=== PATIENT | female | born 1965 | race Caucasian/White ===

== ENCOUNTER 2018-11-22 11:21 | Emergency (ER) | payer OTHER ==
[2018-11-22] MEDS ORDERED: DUONEB 0.5-3 MG/3 ml Neb IH ONE (11:49)
[2018-11-22] MEDS: DUONEB 0.5-3 MG/3 ml Neb IH ONE (11:51)
[2018-11-22] MEDS ORDERED: Sodium Chloride 0.9% 1000 ML 1,000 ML ONE (11:55)
[2018-11-22] MEDS ORDERED: ROCEPHIN 1 Gm-D5w 50 ml Bag** 1 G/50 ML IVPB IV ONE (11:55)
[2018-11-22] MEDS ORDERED: Zithromax 500 MG/ 250 ML NaCl Premix 500 MG/250 ML IVPB IV ONE (11:55)
[2018-11-22] MEDS: Rocephin 1000 MG INJ IM ONE (12:03)
[2018-11-22] MEDS: Sodium Chloride 0.9% 1000 ML 1,000 ML IV STA (12:04)
[2018-11-22] MEDS: Zithromax 500 MG/ 250 ML NaCl Premix 500 MG/250 ML IVPB IV ONE (12:04)
[2018-11-22 12:15] LABS: BASOPHIL % 0.1 % (0.0-0.4); Basophil (Absolute #) 0.02 (0-0.4); Eosinophil % 0.5 % (0.00-5.0); Eosinophil (Absolute #) 0.08 (0-0.5); Granulocytes % 81.9 % (36.0-66.0); Hemoglobin 13.9 gm/dl (12.0-16.0); Lymphocyte (Absolute #) 1.31 (1.0-4.6); Lymphocytes % 8.9 % (24.0-44.0); Mean Cell Volume 96.2 fl (78-100); Mean Corpuscular Hemoglobin 32.6 pg (26-32); Mean Corpuscular Hgb Concent. 33.9 g/dl (32-36); Mean Platelet Volume 9.3 fl (6-9.5); Monocyte (Absolute #) 1.26 (0.0-1.3); Monocytes % 8.6 % (0.0-12.0); Platelet Count 277 K/mm3 (150-450); Red Blood Count 4.26 M/mm3 (4.1-5.4); Red Cell Distribution Width 13.2 % (11.5-14.0); White Blood Count 14.7 K/mm3 (4.0-10.5)
[2018-11-22 12:26] LABS: ALBUMIN 4.4 g/dL (3.5-5.0); ALKALINE PHOSPHATASE 77 U/L (38-126); ANION GAP 18.6 MEQ/L (5-15); BLOOD UREA NITROGEN 8 mg/dL (7-17); CHLORIDE 97 mmol/L (98-107); Calcium 9.5 mg/dL (8.4-10.2); Carbon Dioxide 24 mmol/L (22-30); Creatinine 1 0.47 mg/dL (0.52-1.04); Glucose 116 mg/dL (74-106); Potassium 3.2 mmol/L (3.5-5.1); SGOT/AST 20 U/L (14-36); SGPT/ALT 12 U/L (0-35); SODIUM 137 mmol/L (137-145); Total Protein 8.1 g/dL (6.3-8.2)
[2018-11-22 12:29] LABS: Appearance SLIGHTLY CLOUDY (CLEAR); Bacteria RARE /HPF (NEGATIVE); Bilirubin NEGATIVE (NEGATIVE); Blood NEGATIVE Ery/ul (0-5); Epithelial Cells RARE /HPF (FEW); Glucose NEGATIVE (NEGATIVE); Ketones NEGATIVE (NEGATIVE); Leukocyte Esterase NEGATIVE (NEGATIVE); Mucus SLIGHT /HPF (NEGATIVE); Nitrite NEGATIVE (NEGATIVE); Protein,Urine Dip 30 (Negative); Specific Gravity 1.025 (1.005-1.025); Urobilinogen 4 mg/dL (0-1)
[2018-11-22 12:45] LABS: Group A Strep NEGATIVE (NEGATIVE); INFLUENZA A NEGATIVE (NEGATIVE); INFLUENZA B NEGATIVE (NEGATIVE); RESPIRATORY SYNCTIAL VIRUS NEGATIVE (Negative)
[2018-11-22 15:01] VITALS: BP 104/67; PULSE 101
[2018-11-22 15:06] VITALS: O2SAT 98
--- NOTE | 2018-11-22 15:06 | ERPHSYRPT ---
- History of Present Illness Source: patient Exam Limitations: no limitations Patient Subjective Stated Complaint: fever since yesterday, hard to breath, weak Triage Nursing Assessment: Pt used a wheelchair to get into the ER, states her fever this morning was 101.8 and T now is 98.2, tachycardic, rates pain 6/10, pulses normal, color normal and dry, doesn't appear to be in any distress Physician History: Pt is a 53 y/o female with a h/o COPD, that developed fever for the last three days. Pt states, has SOB and wheezes with pain with deep breathing. Pt states , did not improve, and secondary to it, presented to the ED. Pt is using Breo, and Duo nebs. No Spiriva or Incruse. She states, smoking about 1/3 pack of cigarettes daily. No use of O2 at home. Timing/Duration: day(s) Activities at Onset: none Severity of Dyspnea-Max: moderate Severity of Dyspnea-Current: mild Possible Cause: occasional episodes Modifying Factors: Improves With: albuterol nebulizer, deep breath, exertion Associated Symptoms: fever, painful breathing Allergies/Adverse Reactions: No Known Drug Allergies Allergy (Verified 11/22/18 11:47) Home Medications: Albuterol 2.5 mg/3 ml Neb [Proventil 2.5 mg/3 ml Neb] 2.5 mg [facility] [History] Albuterol Sulfate [Albuterol Sulfate Hfa] 18 gm [facility] 11/22/18 [History] Cyclobenzaprine HCl 10 mg [Cyclobenzaprine 10 MG] 10 mg PO UD PRN [History] Fluticasone/Vilanterol [Breo Ellipta 100-25 Mcg INH] 1 each [facility] 11/22/18 [ History] - Review of Systems Constitutional: Fever, Chills, Fatigue Eyes: No Symptoms Ears, Nose, & Throat: No Symptoms Respiratory: Dyspnea, Dyspnea on Exertion (LAWLER), Wheezing Cardiac: No Chest Pain, No Edema, No Syncope Abdominal/Gastrointestinal: No Abdominal Pain, No Nausea, No Vomiting, No Diarrhea Genitourinary Symptoms: No Dysuria Musculoskeletal: No Back Pain, No Neck Pain Neurological: No Dizziness, No Focal Weakness, No Sensory Changes - Past Medical History Pertinent Past Medical History: Yes Respiratory History: COPD, Emphysema Musculoskeletal History: Rheumatoid Arthritis, Other GI Medical History: Diverticulitis - Past Surgical History Past Surgical History: Yes - Social History Smoking Status: Current every day smoker How long have you smoked: 40 years Exposure to second hand smoke: Yes Drug Use: none Patient Lives Alone: Yes - Nursing Vital Signs Nursing Vital Signs: Initial Vital Signs Temperature 98.2 F 11/22/18 11:29 Pulse Rate 108 H 11/22/18 11:29 Blood Pressure 109/70 11/22/18 11:29 O2 Sat by Pulse Oximetry 99 11/22/18 11:29 Pain Scale Pain Intensity 4 - Physical Exam General Appearance: no apparent distress, alert Eye Exam: PERRL/EOMI Ears, Nose, Throat Exam: hearing grossly normal Neck Exam: normal inspection, supple Respiratory Exam: prolonged expirations, wheezing Cardiovascular/Chest Exam: normal heart sounds, regular rate/rhythm Abdominal/Gastrointestinal Exam: soft, No tenderness, No distention, No mass Extremity Exam: non-tender, normal range of motion, normal inspection, no calf tenderness, no pedal edema Neurologic Exam: alert, oriented x 3, cooperative, barge loader II-XII nml as tested, sensation nml, No motor deficits SpO2 Interpretation: normal SpO2: 98 - Course EKG Interpreted by Me: RATE (108), Sinus Rhythm, NORMAL QRS, NORMAL ST-T - Radiology Exams Chest X-ray Interpretation: Interpreted by me (RUL and RLL infiltrates, density of NIA ) - CT Exams Chest CT Interpretation: Tele-radiologist Report (Abnormal b/l upper lobes hypersensetivity pneumonitis, pneumoconiosis, granulomatous dsx. Pulmonary emphysema.) Ordered Tests: Active Orders 24 hr Category Date Time Status IV Insertion STAT Care 11/22/18 11:36 Active CHEST 2 VIEWS (PA AND LAT) Stat Exams 11/22/18 12:17 Taken CHEST WITHOUT CONTRAST [CT] Stat Exams 11/22/18 13:06 Taken BLOOD CULTURE Stat Lab 11/22/18 12:01 Received CBC W DIFF Stat Lab 11/22/18 12:01 Completed CMP Stat Lab 11/22/18 12:01 Completed Lactic Acid Stat Lab 11/22/18 11:44 Completed UA W/RFX UR CULTURE Stat Lab 11/22/18 11:52 Completed Peak Expiratory Flow Rate ONCE RT 11/22/18 11:55 Active Respiratory Therapy Assessment DAILY RT 11/22/18 11:55 Active Medication Summary Discontinued Medications Generic Name Dose Route Start Last Admin Trade Name Rojas PRN Reason Stop Dose Admin Albuterol/Ipratropium 3 ml 11/22/18 11:44 11/22/18 11:51 Duoneb 0.5-3 Mg/3 Ml Neb IH 11/22/18 11:45 3 ml STAT ONE Administration Albuterol/Ipratropium Confirm 11/22/18 11:49 Duoneb 0.5-3 Mg/3 Ml Neb Administered 11/22/18 11:50 Dose 3 ml IH .STK-MED ONE Ceftriaxone Sodium 1,000 mg 11/22/18 11:36 11/22/18 12:03 Rocephin 1000 Mg Inj IM 11/22/18 11:37 1,000 mg STAT ONE Administration Azithromycin 500 mg in 250 mls @ 250 mls/hr 11/22/18 11:38 11/22/18 12:04 Zithromax 500 Mg/ 250 Ml Nacl Premix IV 11/22/18 12:37 250 mls/hr STAT ONE Administration Sodium Chloride 1,000 mls @ 999 mls/hr 11/22/18 11:36 11/22/18 13:59 Sodium Chloride 0.9% 1000 Ml IV 11/22/18 12:36 Infused .Q1H1M STA Infusion Azithromycin Confirm 11/22/18 11:55 Zithromax 500 Mg/ 250 Ml Nacl Premix Administered 11/22/18 11:56 Dose 500 mg in 250 mls @ ud IV .STK-MED ONE Sodium Chloride Confirm 11/22/18 11:55 Sodium Chloride 0.9% 1000 Ml Administered 11/22/18 11:56 Dose 1,000 mls @ ud .ROUTE .STK-MED ONE Ceftriaxone Sodium/Dextrose Confirm 11/22/18 11:55 Rocephin 1 Gm-D5w 50 Ml Bag Administered 11/22/18 11:56 Dose 1 g in 50 mls @ ud IV .STK-MED ONE Lab/Rad Data: Laboratory Result Diagrams 11/22/18 12:01 11/22/18 12:01 Laboratory Results 11/22/18 11/22/18 11/22/18 Range/Units 12:01 12:01 12:01 WBC 14.7 H (4.0-10.5) K/mm3 RBC 4.26 (4.1-5.4) M/mm3 Hgb 13.9 (12.0-16.0) gm/dl Hct 41.0 (35-47) % MCV 96.2 (78-100) fl MCH 32.6 H (26-32) pg MCHC 33.9 (32-36) g/dl RDW 13.2 (11.5-14.0) % Plt Count 277 (150-450) K/mm3 MPV 9.3 (6-9.5) fl Gran % 81.9 H (36.0-66.0) % Eos # (Auto) 0.08 (0-0.5) Absolute Lymphs (auto) 1.31 (1.0-4.6) Absolute Monos (auto) 1.26 (0.0-1.3) Lymphocytes % 8.9 L (24.0-44.0) % Monocytes % 8.6 (0.0-12.0) % Eosinophils % 0.5 (0.00-5.0) % Basophils % 0.1 (0.0-0.4) % Absolute Granulocytes 12.00 H (1.4-6.9) Basophils # 0.02 (0-0.4) Sodium 137 (137-145) mmol/L Potassium 3.2 L (3.5-5.1) mmol/L Chloride 97 L (98-107) mmol/L Carbon Dioxide 24 (22-30) mmol/L Anion Gap 18.6 H (5-15) MEQ/L BUN 8 (7-17) mg/dL Creatinine 0.47 L (0.52-1.04) mg/dL Estimated GFR > 60.0 ML/MIN Glucose 116 H (74-106) mg/dL Lactic Acid (0.4-2.0) Calcium 9.5 (8.4-10.2) mg/dL Total Bilirubin 0.70 (0.2-1.3) mg/dL AST 20 (14-36) U/L ALT 12 (0-35) U/L Alkaline Phosphatase 77 (38-126) U/L Serum Total Protein 8.1 (6.3-8.2) g/dL Albumin 4.4 (3.5-5.0) g/dL Urine Color (YELLOW) Urine Appearance (CLEAR) Urine pH (5-6) Ur Specific [place] (1.005-1.025) Urine Protein (Negative) Urine Ketones (NEGATIVE) Urine Blood (0-5) Jabier/ul Urine Nitrite (NEGATIVE) Urine Bilirubin (NEGATIVE) Urine Urobilinogen (0-1) mg/dL Ur Leukocyte Esterase (NEGATIVE) Urine WBC (Auto) (0-5) /HPF Urine RBC (Auto) (0-2) /HPF U Hyaline Cast (Auto) (0-2) /LPF U Epithel Cells (Auto) (FEW) /HPF Urine Bacteria (Auto) (NEGATIVE) /HPF Urine Mucus (Auto) (NEGATIVE) /HPF Urine Culture Reflexed (NO) Urine Glucose (NEGATIVE) mg/dL Influenza Type A Ag NEGATIVE (NEGATIVE) Influenza Type B Ag NEGATIVE (NEGATIVE) RSV (PCR) NEGATIVE (Negative) Group A Strep Antibody NEGATIVE (NEGATIVE) 11/22/18 11/22/18 Range/Units 11:52 11:44 WBC (4.0-10.5) K/mm3 RBC (4.1-5.4) M/mm3 Hgb (12.0-16.0) gm/dl Hct (35-47) % MCV (78-100) fl MCH (26-32) pg MCHC (32-36) g/dl RDW (11.5-14.0) % Plt Count (150-450) K/mm3 MPV (6-9.5) fl Gran % (36.0-66.0) % Eos # (Auto) (0-0.5) Absolute Lymphs (auto) (1.0-4.6) Absolute Monos (auto) (0.0-1.3) Lymphocytes % (24.0-44.0) % Monocytes % (0.0-12.0) % Eosinophils % (0.00-5.0) % Basophils % (0.0-0.4) % Absolute Granulocytes (1.4-6.9) Basophils # (0-0.4) Sodium (137-145) mmol/L Potassium (3.5-5.1) mmol/L Chloride (98-107) mmol/L Carbon Dioxide (22-30) mmol/L Anion Gap (5-15) MEQ/L BUN (7-17) mg/dL Creatinine (0.52-1.04) mg/dL Estimated GFR ML/MIN Glucose (74-106) mg/dL Lactic Acid 1.4 (0.4-2.0) Calcium (8.4-10.2) mg/dL Total Bilirubin (0.2-1.3) mg/dL AST (14-36) U/L ALT (0-35) U/L Alkaline Phosphatase (38-126) U/L Serum Total Protein (6.3-8.2) g/dL Albumin (3.5-5.0) g/dL Urine Color YELLOW (YELLOW) Urine Appearance SLIGHTLY CLOUDY (CLEAR) Urine pH 5.0 (5-6) Ur Specific [place] 1.025 (1.005-1.025) Urine Protein 30 (Negative) Urine Ketones NEGATIVE (NEGATIVE) Urine Blood NEGATIVE (0-5) Jabier/ul Urine Nitrite NEGATIVE (NEGATIVE) Urine Bilirubin NEGATIVE (NEGATIVE) Urine Urobilinogen 4 (0-1) mg/dL Ur Leukocyte Esterase NEGATIVE (NEGATIVE) Urine WBC (Auto) 3-5 (0-5) /HPF Urine RBC (Auto) NONE (0-2) /HPF U Hyaline Cast (Auto) 6-10 (0-2) /LPF U Epithel Cells (Auto) RARE (FEW) /HPF Urine Bacteria (Auto) RARE (NEGATIVE) /HPF Urine Mucus (Auto) SLIGHT (NEGATIVE) /HPF Urine Culture Reflexed NO (NO) Urine Glucose NEGATIVE (NEGATIVE) mg/dL Influenza Type A Ag (NEGATIVE) Influenza Type B Ag (NEGATIVE) RSV (PCR) (Negative) Group A Strep Antibody (NEGATIVE) - Progress Progress: improved Air Movement: good Progress Note: 11/22/18 15:10 Pt got Ceftriaxone IV. Azithromax stopped mid infusion, secondary to erythema that developed during infusion. Duo neb therapy was given. CXR showed multiple infiltrates and CT showed b/l disease, that can be pneumonitis, or granulomatous dsx. Pt will be d/c to home on Levaquin and Medrol dose pack. She should f/u with Pulmonology to work her up, and make sure no escalation of her chronic dsx. Blood Culture(s) Obtained: Yes Antibiotics given: Yes Will see patient in: office Counseled pt/family regarding: need for follow-up - Departure Departure Disposition: Home Clinical Impression: Pneumonitis Condition: Stable Critical Care Time: No Referrals: SANDOR KRAUSE, [employer]ET[employer] DIRECTOR [Primary Care Provider] - Additional Instructions: Take ABX and steroids as ordered. Take Breo and nebs as schedulled. F/U with Pulmonology and PCP. Prescriptions: Levofloxacin [Levaquin] 750 mg PO DAILY 7 Days #7 tablet Methylprednisolone Packet [Medrol Dosepack] 4 mg PO UD 6 Days #1 packet
--- NOTE | 2018-11-22 20:15 | XRAY ---
Indication: Short of breath. COPD. Multiple infiltrates on same-day chest radiograph. Multiple contiguous axial images obtained through the chest without contrast as ordered. Comparison: None Lungs demonstrates mild/moderate pulmonary emphysema with mild right middle lobe and bibasilar fibrosis/scarring. There are patchy interstitial alveolar opacities in both upper lobes. No suspicious pulmonary mass or effusion. Heart is not enlarged. Aorta is normal in course and caliber with minimal calcifications. 11 x 16 mm precarinal lymph node possibly reactive. Bony thorax intact. Limited upper abdomen including adrenal glands are unremarkable. Impression: 1. Bilateral upper lobe interstitial alveolar opacities corresponding to same day chest radiograph finding. 2. Prominent mediastinal lymph node presumed reactive. 3. Pulmonary emphysema. Comment: Preliminary interpretation was made by [facility]. No critical discrepancy. CTDI 9.38
--- NOTE | 2018-11-22 20:16 | XRAY ---
Indication: Short of breath. COPD. Comparison: None PA/lateral chest hyperinflated with patchy biapical airspace disease without consolidation/large effusion. Remaining heart and bony thorax unremarkable.
== END 2018-11-22 15:20 | disposition home or self-care (01) ==
LOC: ED 11:21
DX: J18.9 Pneumonia, unspecified organism (principal)
CPT/HCPCS: 36000; 36415; 71046; 71250; 80053; 81001; 83605; 85025; 87040; 87631; 87651; 94150; 94640; 96360; 96365; 96368; 99284; J0456; J0696; A9270-GY

== ENCOUNTER 2021-07-25 15:42 | Emergency (ER) | payer MEDICARE ==
[2021-07-25 15:51] VITALS: BP 109/80
[2021-07-25] MEDS ORDERED: DUONEB 0.5-3 MG/3 ml Neb IH ONE ×2 (16:23→16:47)
[2021-07-25] MEDS ORDERED: BABY ASPIRIN 81 MG CHEW PO ONE (16:25)
--- NOTE | 2021-07-25 16:30 | ERPHSYRPT ---
- History of Present Illness Time Seen by Provider: 07/25/21 15:44 Historian: patient Exam Limitations: no limitations Patient Subjective Stated Complaint: pt to er c/o left sided chest pain onset this am. PT reports radiation down left arm and numbness to left digits. Nausea present otherwise no other sx. pain is contiuous throbbing pain Triage Nursing Assessment: TP arrives to er pale/w/d resp easy non labored pt a@ox3 BBS CTA, heart tones normal Physician History: 55-year-old female with history of anxiety, tobacco abuse, cyst chronic respiratory failure from COPD on 5 L oxygen presented in the ER with no nonbl oody, from primary care office with chief complaint of chest pain since morning. Patient reports sharp substernal/left-sided chest pain with radiation to the left arm, aggravated with movements of left arm and no significant relieving factors. Reports associated mild increased shortness of breath and palpitations. Denies fever or chills. Patient reports she has history of anxiety and going through a lot of stress lately. Denies any history of CAD or cardiac work-up in the past. Timing/Duration: today, constant, sudden, worse Activities at Onset: emotional stress, sleep Quality: sharpness Location: substernal Chest Pain Radiation: arm Severity of Pain-Max: moderate Severity of Pain-Current: moderate Modifying Factors: Worsens With: movement Associated Symptoms: palpitations, shortness of breath Prior Chest Pain/Cardiac Workup: no prior chest pain, no prior cardiac workup Nitro Today/Relief: no nitro taken today Aspirin Treatment Today: no aspirin today Allergies/Adverse Reactions: No Known Drug Allergies Allergy (Verified 11/22/18 11:47) Home Medications: Albuterol 2.5 mg/3 ml Neb [Proventil 2.5 mg/3 ml Neb] 2.5 mg IH QID 11/22/18 [History] Albuterol Sulfate [Albuterol Sulfate Hfa] 18 gm IH UD PRN 11/22/18 [History] Fluticasone/Umeclidin/Vilanter [Trelegy Ellipta 100-62.5-25] 1 unit IH DAILY 07/25/21 [History] Lactulose [Lactulose 20 gm/30Ml Ud Cup] 20 gm PO TID 07/25/21 [History] predniSONE [Prednisone] 10 mg PO DAILY 07/25/21 [History] Travel Risk - International Travel Have you traveled outside of the country in past 3 weeks: No - Coronavirus Screening Are you exhibiting any of the following symptoms?: No Close contact with a COVID-19 positive Pt in past 14-21 Days: No - Vaccine Status Have you recieved a Covid-19 vaccination: No - Review of Systems Constitutional: No Symptoms Eyes: No Symptoms Ears, Nose, & Throat: No Symptoms Respiratory: Cough, Dyspnea, Dyspnea on Exertion (LAWLER) Cardiac: Chest Pain, Palpitations Abdominal/Gastrointestinal: No Symptoms Genitourinary Symptoms: No Symptoms Musculoskeletal: No Symptoms Skin: No Symptoms Neurological: No Symptoms Psychological: No Symptoms Endocrine: No Symptoms Hematologic/Lymphatic: No Symptoms Immunological/Allergic: No Symptoms - Past Medical History Pertinent Past Medical History: Yes Respiratory History: COPD, Emphysema Musculoskeletal History: Rheumatoid Arthritis, Other GI Medical History: Diverticulitis - Past Surgical History Past Surgical History: Yes - Social History Smoking Status: Current every day smoker How long have you smoked: 40 years Exposure to second hand smoke: Yes Drug Use: none Patient Lives Alone: Yes - Nursing Vital Signs Nursing Vital Signs: Initial Vital Signs Temperature 98.7 F 07/25/21 15:42 Pulse Rate 110 H 07/25/21 15:42 Respiratory Rate 20 07/25/21 15:42 Blood Pressure 109/80 07/25/21 15:42 O2 Sat by Pulse Oximetry 97 07/25/21 15:42 Pain Scale Pain Intensity 8 - Physical Exam General Appearance: no apparent distress, alert, anxiety Eye Exam: PERRL/EOMI, eyes nml inspection Ears, Nose, Throat Exam: normal ENT inspection, TMs normal, pharynx normal, moist mucous membranes Neck Exam: normal inspection, non-tender, supple, full range of motion Respiratory Exam: wheezing, No chest tenderness, No respiratory distress, No accessory muscle use Cardiovascular Exam: tachycardia Back Exam: normal inspection, normal range of motion Extremity Exam: normal inspection, normal range of motion Neurologic Exam: alert, oriented x 3, cooperative Skin Exam: normal color SpO2 Interpretation: normal SpO2: 97 O2 Delivery: Nasal Cannula - Course EKG Interpreted by Me: RATE (98), NORMAL AXIS, NORMAL INTERVALS, Non-specific ST Changes, Other (Right atrial enlargement.) Ordered Tests: Active Orders 24 hr Category Date Time Status Computer Training Specialist STAT Care 07/25/21 16:24 Active EKG-ER Only STAT Care 07/25/21 16:23 Active IV Insertion STAT Care 07/25/21 16:23 Active CHEST 1 VIEW (PORTABLE) Stat Exams 07/25/21 16:24 Completed BLOOD CULTURE Stat Lab 07/25/21 16:24 Ordered CBC W DIFF Stat Lab 07/25/21 16:23 Completed CMP Stat Lab 07/25/21 16:23 Completed D-DIMER QUANTITATIVE Stat Lab 07/25/21 16:23 Completed Lactic Acid Stat Lab 07/25/21 16:50 Completed MAGNESIUM Stat Lab 07/25/21 16:23 Completed NT PRO BNP Stat Lab 07/25/21 16:23 Completed TROPONIN Q3H Lab 07/25/21 16:30 Completed TROPONIN Q3H Lab 07/25/21 19:30 Ordered TROPONIN Q3H Lab 07/25/21 22:30 Ordered TROPONIN Q3H Lab 07/26/21 01:30 Ordered TROPONIN Q3H Lab 07/26/21 04:30 Ordered UA W/RFX UR CULTURE Stat Lab 07/25/21 17:17 Ordered Respiratory Therapy Assessment DAILY RT 07/25/21 16:55 Active Medication Summary Discontinued Medications Generic Name Dose Route Start Last Admin Trade Name Freq PRN Reason Stop Dose Admin Albuterol/Ipratropium 3 ml 07/25/21 16:23 07/25/21 16:48 Ipratropium/Albuterol Sulfate 3 Ml Ampul.Neb IH 07/25/21 16:24 3 ml STAT ONE Administration Albuterol/Ipratropium Confirm 07/25/21 16:47 Ipratropium/Albuterol Sulfate 3 Ml Ampul.Neb Administered 07/25/21 16:48 Dose 3 ml IH .STK-MED ONE Aspirin 324 mg 07/25/21 16:25 07/25/21 16:34 Aspirin 81 Mg Tab.Chew PO 07/25/21 16:26 324 mg STAT ONE Administration Aspirin Confirm 07/25/21 16:34 Aspirin 81 Mg Tab.Chew Administered 07/25/21 16:35 Dose 324 mg .ROUTE .STK-MED ONE Lab/Rad Data: Laboratory Result Diagrams 07/25/21 16:23 07/25/21 16:23 Laboratory Results 07/25/21 07/25/21 07/25/21 Range/Units 16:50 16:30 16:23 WBC (4.0-10.5) K/mm3 RBC (4.1-5.4) M/mm3 Hgb (12.0-16.0) gm/dl Hct (35-47) % MCV (78-100) fl MCH (26-32) pg MCHC (32-36) g/dl RDW (11.5-14.0) % Plt Count (150-450) K/mm3 MPV (7.5-11.0) fl Gran % (36.0-66.0) % Eos # (Auto) (0-0.5) Absolute Lymphs (auto) (1.0-4.6) Absolute Monos (auto) (0.0-1.3) Lymphocytes % (24.0-44.0) % Monocytes % (0.0-12.0) % Eosinophils % (0.00-5.0) % Basophils % (0.0-0.4) % Absolute Granulocytes (1.4-6.9) Basophils # (0-0.4) D-Dimer < 215 L (215-500) ng/mL Sodium (137-145) mmol/L Potassium (3.5-5.1) mmol/L Chloride (98-107) mmol/L Carbon Dioxide (22-30) mmol/L Anion Gap (5-15) MEQ/L BUN (7-17) mg/dL Creatinine (0.52-1.04) mg/dL Estimated GFR ML/MIN Glucose (74-106) mg/dL Lactic Acid 1.4 (0.4-2.0) Calcium (8.4-10.2) mg/dL Magnesium (1.6-2.3) mg/dL Total Bilirubin (0.2-1.3) mg/dL AST (14-36) U/L ALT (0-35) U/L Alkaline Phosphatase (38-126) U/L Troponin I < 0.012 (0.000-0.034) ng/mL NT-Pro-B Natriuret Pep (0-900) pg/mL Serum Total Protein (6.3-8.2) g/dL Albumin (3.5-5.0) g/dL 07/25/21 07/25/21 Range/Units 16:23 16:23 WBC 7.8 (4.0-10.5) K/mm3 RBC 4.35 (4.1-5.4) M/mm3 Hgb 13.9 (12.0-16.0) gm/dl Hct 43.6 (35-47) % MCV 100.2 H (78-100) fl MCH 32.0 (26-32) pg MCHC 31.9 L (32-36) g/dl RDW 13.0 (11.5-14.0) % Plt Count 245 (150-450) K/mm3 MPV 10.0 (7.5-11.0) fl Gran % 83.3 H (36.0-66.0) % Eos # (Auto) 0.01 (0-0.5) Absolute Lymphs (auto) 0.90 L (1.0-4.6) Absolute Monos (auto) 0.38 (0.0-1.3) Lymphocytes % 11.5 L (24.0-44.0) % Monocytes % 4.8 (0.0-12.0) % Eosinophils % 0.1 (0.00-5.0) % Basophils % 0.3 (0.0-0.4) % Absolute Granulocytes 6.53 (1.4-6.9) Basophils # 0.02 (0-0.4) D-Dimer (215-500) ng/mL Sodium 142 (137-145) mmol/L Potassium 3.9 (3.5-5.1) mmol/L Chloride 102 (98-107) mmol/L Carbon Dioxide 33 H (22-30) mmol/L Anion Gap 11.2 (5-15) MEQ/L BUN 5 L (7-17) mg/dL Creatinine 0.56 (0.52-1.04) mg/dL Estimated GFR > 60.0 ML/MIN Glucose 122 H (74-106) mg/dL Lactic Acid (0.4-2.0) Calcium 9.7 (8.4-10.2) mg/dL Magnesium 1.9 (1.6-2.3) mg/dL Total Bilirubin 0.80 (0.2-1.3) mg/dL AST 19 (14-36) U/L ALT 12 (0-35) U/L Alkaline Phosphatase 60 (38-126) U/L Troponin I (0.000-0.034) ng/mL NT-Pro-B Natriuret Pep 201 (0-900) pg/mL Serum Total Protein 7.0 (6.3-8.2) g/dL Albumin 4.5 (3.5-5.0) g/dL - Progress Progress: improved Air Movement: good Progress Note: 07/25/21 18:40 55-year-old is evaluated for chest pain, EKG did not show any acute ischemic changes and negative initial troponin and D-dimer. Chest x-ray negative for any acute cardiopulmonary findings. Patient has multiple risk factors for CAD, recommended observation admission for rule out ACS, does not want to stay. She is not confused or altered at all. Patient reports her pain is resolved now and does not want to stay even for second troponin. She wanted to leave AGAINST MEDICAL ADVICE and understand the risk of delaying the diagnosis, worsening of condition including IL leading to but still wants to leave. Blood Culture(s) Obtained: No Antibiotics given: No Counseled pt/family regarding: lab results, diagnosis, rad results, smoking cessation - Departure Departure Disposition: AMA Clinical Impression: Precordial chest pain Condition: Stable Critical Care Time: No Referrals: YODIT CASAS [Primary Care Provider] - Follow up/PCP as directed (1-2 days for reevaluation) MARYAN ARANA [CONSULTING PHYSICIAN] - Follow up/PCP as directed (Call for appointment for reevaluation) Instructions: Angina (DC), Chest Pain (DC) Additional Instructions: Do not smoke. Follow-up with primary care and cardiology for reevaluation. Re turn to ER for worsening chest pain or if having difficulty breathing etc.
[2021-07-25] MEDS ORDERED: BABY ASPIRIN 81 MG CHEW ONE (16:34)
[2021-07-25 16:43] LABS: Absolute Neutrophil Ct (ANC) 6.53 (1.4-6.9); Basophil (Absolute #) 0.02 (0-0.4); Eosinophil % 0.1 % (0.00-5.0); Eosinophil (Absolute #) 0.01 (0-0.5); Hematocrit 43.6 % (35-47); Hemoglobin 13.9 gm/dl (12.0-16.0); Lymphocytes % 11.5 % (24.0-44.0); Mean Cell Volume 100.2 fl (78-100); Mean Corpuscular Hgb Concent. 31.9 g/dl (32-36); Monocyte (Absolute #) 0.38 (0.0-1.3); Monocytes % 4.8 % (0.0-12.0); Neutrophil % 83.3 % (36.0-66.0); Platelet Count 245 K/mm3 (150-450); Red Blood Count 4.35 M/mm3 (4.1-5.4); White Blood Count 7.8 K/mm3 (4.0-10.5)
--- NOTE | 2021-07-25 16:43 | XRAY ---
Indication: Chest pain. Comparison: May 31, 2021. Lungs remain hyperinflated and clear. Heart not enlarged. Bony thorax intact. Findings unchanged with respect to recent CT chest with contrast exam July 09, 2021.
[2021-07-25 16:56] VITALS: PULSE 84
[2021-07-25 17:00] LABS: ALBUMIN 4.5 g/dL (3.5-5.0); ALKALINE PHOSPHATASE 60 U/L (38-126); ANION GAP 11.2 MEQ/L (5-15); BLOOD UREA NITROGEN 5 mg/dL (7-17); CHLORIDE 102 mmol/L (98-107); Calcium 9.7 mg/dL (8.4-10.2); Carbon Dioxide 33 mmol/L (22-30); Creatinine 1 0.56 mg/dL (0.52-1.04); EST GLOMERULAR FILTRATION RATE > 60.0 ML/MIN; Glucose 122 mg/dL (74-106); MAGNESIUM 1.9 mg/dL (1.6-2.3); NT PRO BNP 201 pg/mL (0-900); Potassium 3.9 mmol/L (3.5-5.1); SGOT/AST 19 U/L (14-36); SGPT/ALT 12 U/L (0-35); SODIUM 142 mmol/L (137-145)
[2021-07-25 18:37] VITALS: O2SAT 97
== END 2021-07-25 18:51 | disposition left against medical advice (07) ==
LOC: ED 15:42
DX: R07.2 Precordial pain (principal); R00.2 Palpitations; J96.10 Chronic respiratory failure, unspecified whether with hypoxia or hypercapnia; Z99.81 Dependence on supplemental oxygen; Z72.0 Tobacco use; J44.9 Chronic obstructive pulmonary disease, unspecified; F41.9 Anxiety disorder, unspecified; Z79.52 Long term (current) use of systemic steroids
CPT/HCPCS: 36000; 36415; 71045; 80053; 83605; 83735; 83880; 84484; 85025; 85379; 87040; 93005; 93041; 94640; 99284; A9270-GY

== ENCOUNTER 2021-09-26 19:39 | Observation (INO) | payer MEDICARE ==
[2021-09-26] MEDS ORDERED: Sodium Chloride 0.9% 1000 ML 1,000 ML IV STA (19:55)
[2021-09-26] MEDS ORDERED: Sodium Chloride 0.9% 1000 ML 1,000 ML ONE (20:13)
--- NOTE | 2021-09-26 20:26 | ERPHSYRPT ---
- History of Present Illness Time Seen by Provider: 09/26/21 19:42 Source: patient, EMS Exam Limitations: no limitations Patient Subjective Stated Complaint: Patient keeps stating "I'm at home." She admits to staff that she has been drinking today but will not answer when asked what kind of alcohol she consumed or how much. Medics state that her son found her on the floor at home and called them due to current condition. Medics state patient is intoxicated and uncooperative. Triage Nursing Assessment: Patient arrived by ambulance. She is alert to name but confused to time, place, situation. She is cooperative at time and uncooperative at other times. She answered some triage questions but refused to answer others. Her pupils are pinpoint. Her tongue is dry. She has a moist, non- productive cough. Some wheezing noted in lung pineda. Accu check 111 upon arrival to ED. No skin alerations noted to visible skin pineda at this time. Patient unwilling to left staff undress her at this time to inspect skin areas covered by clothing. Patient is SARAVIA WNL at this time. Physician History: 56 years old female with history of chronic respiratory failure from COPD on 5 L oxygen, GERD, diabetes mellitus, alcohol abuse presented to the ER via EMS after son found her lying on the floor in her room. Patient was agitated/combative initially but is a little sober on presentation in the ER. Patient is awake and alert but not fully oriented and answers few questions. Does admit drinking alcohol. Moving all 4 extremities. Not in any distress. History is limited secondary to her intoxication Timing/Duration: today Severity: moderate Allergies/Adverse Reactions: No Known Drug Allergies Allergy (Verified 09/26/21 19:45) Home Medications: Albuterol Sulfate [Albuterol Sulfate Hfa] 2 puff PO Q4HWA 09/26/21 [History] Dapagliflozin Propanediol [Farxiga] 1 tab PO DAILY 09/26/21 [History] Fluticasone/Umeclidin/Vilanter [Trelegy Ellipta 100-62.5-25] 1 puff PO DAILY 09/26/21 [History] PANTOPRAZOLE 40 mg Tablet [Protonix 40MG Tablet] 1 tab PO BID 09/26/21 [History] Prednisone 10 mg [Deltasone 10 mg] 1 tab PO DAILY 09/26/21 [History] Venlafaxine HCl ER 37.5 mg [Effexor ER 37.5 MG] 1 tab PO DAILY 09/26/21 [History] clonazePAM 1 tab PO BID PRN 09/26/21 [History] Hx Tetanus, Diphtheria Vaccination/Date Given: (unknown) Hx Influenza Vaccination/Date Given: (unknown) Hx Pneumococcal Vaccination/Date Given: (unknown) Immunizations Up to Date: (unknown) Travel Risk - International Travel Have you traveled outside of the country in past 3 weeks: No - Coronavirus Screening Are you exhibiting any of the following symptoms?: No Close contact with a COVID-19 positive Pt in past 14-21 Days: No - Vaccine Status Have you recieved a Covid-19 vaccination: No - Review of Systems All Other Systems: Unable due to condition - Past Medical History Pertinent Past Medical History: Yes Neurological History: No Pertinent History ENT History: No Pertinent History Cardiac History: No Pertinent History Respiratory History: COPD, Emphysema Endocrine Medical History: No Pertinent History Musculoskeletal History: Rheumatoid Arthritis, Other GI Medical History: Diverticulitis History: No Pertinent History Psycho-Social History: No Pertinent History Female Reproductive Disorders: No Pertinent History Other Medical History: Medical history obtained from medical history from previous hospital visit at this time due to inability to obtain this information from the patient at this time. - Past Surgical History Past Surgical History: Yes Neuro Surgical History: No Pertinent History Cardiac: No Pertinent History Respiratory: No Pertinent History Gastrointestinal: No Pertinent History Genitourinary: No Pertinent History Musculoskeletal: No Pertinent History Female Surgical History: No Pertinent History Other Surgical History: Surgical history obtained from medical history from previous hospital visit at this time due to inability to obtain this information from the patient at this time. - Social History Smoking Status: Current every day smoker How long have you smoked: 42 years Exposure to second hand smoke: Yes Drug Use: none Patient Lives Alone: No (Son) - Nursing Vital Signs Nursing Vital Signs: Initial Vital Signs Temperature 97.5 F 09/26/21 19:45 Pulse Rate 95 H 09/26/21 19:45 Respiratory Rate 18 09/26/21 19:45 Blood Pressure 101/76 09/26/21 19:45 O2 Sat by Pulse Oximetry 98 09/26/21 19:45 Pain Scale Pain Intensity 0 - Physical Exam General Appearance: no apparent distress, lethargy Eye Exam: PERRL/EOMI, eyes nml inspection Ears, Nose, Throat Exam: normal ENT inspection, TMs normal, pharynx normal, moist mucous membranes Neck Exam: normal inspection, non-tender, supple, full range of motion Respiratory Exam: diminished breath sounds, wheezing Cardiovascular Exam: regular rate/rhythm, normal heart sounds Gastrointestinal/Abdomen Exam: soft, normal bowel sounds, No tenderness Extremity Exam: normal inspection, normal range of motion Neurologic Exam: alert, weaver tire cord II-XII nml as tested, No oriented x 3, No cooperative, No normal mood/affect Skin Exam: normal color SpO2 Interpretation: normal SpO2: 98 O2 Delivery: Room Air - Course EKG Interpreted by Me: RATE (101), Sinus Tach, NORMAL AXIS, NORMAL INTERVALS, Other (Nonspecific ST and T wave changes) Ordered Tests: Active Orders 24 hr Category Date Time Status Bedrest ROUTINE Activity 09/27/21 00:41 Active Up With Assistance ROUTINE Activity 09/27/21 00:41 Active Field Professional STAT Care 09/26/21 19:56 Completed Code Status Order ROUTINE Care 09/27/21 00:41 Active EKG-ER Only STAT Care 09/26/21 19:55 Completed Fall Protocol Q1H Care 09/27/21 00:41 Active IV Insertion STAT Care 09/26/21 19:55 Completed Neuro Checks Q2H Care 09/27/21 00:41 Active Oxygen-ED Only Nasal Cannula 4 lpm Care 09/26/21 19:55 Completed POCT Glucose Check ACHS Care 09/27/21 00:41 Active POCT Glucose Check STAT Care 09/26/21 19:[address] in Observation ROUTINE Care 09/27/21 00:41 Active Marjorie Garza ROUTINE Care 09/27/21 00:41 Active Weight,Daily 0600 Care 09/27/21 00:41 Active Consistent Carbohydrate Diet 1800 Calorie Diet 09/27/21 Breakfast Active CERVICAL SPINE WO CONTRAST [CT] Stat Exams 09/26/21 19:56 Taken CHEST 1 VIEW (PORTABLE) Stat Exams 09/26/21 19:56 Taken HEAD WITHOUT CONTRAST [CT] Stat Exams 09/26/21 19:56 Taken SHOULDER Stat Exams 09/26/21 Taken ACETAMINOPHEN Stat Lab 09/26/21 20:10 Completed Alcohol [ETHYL ALCOHOL] Stat Lab 09/26/21 23:15 Completed BLOOD CULTURE Stat Lab 09/26/21 19:57 Received BNP [NT PRO BNP] Stat Lab 09/26/21 20:10 Completed CBC W DIFF AM.LAB Lab 09/27/21 04:00 Ordered CBC W DIFF Stat Lab 09/26/21 20:10 Completed CMP AM.LAB Lab 09/27/21 04:00 Ordered CMP Stat Lab 09/26/21 20:10 Completed ETHYL ALCOHOL Stat Lab 09/26/21 20:10 Completed Lactic Acid Stat Lab 09/26/21 20:13 Completed Lactic Acid Stat Lab 09/26/21 22:23 Completed MAG [MAGNESIUM] Stat Lab 09/26/21 20:10 Completed POCT GLUCOSE Stat Lab 09/26/21 19:44 Completed SALICYLATE Stat Lab 09/26/21 20:10 Completed TROPONIN Q3H Lab 09/26/21 20:10 Received TROPONIN Q3H Lab 09/26/21 23:15 Completed TROPONIN Q3H Lab 09/27/21 02:00 Ordered TROPONIN Q3H Lab 09/27/21 05:00 Ordered UA W/RFX UR CULTURE Stat Lab 09/26/21 19:56 Ordered Urine Triage Profile Stat Lab 09/26/21 19:56 Ordered Oxygen Nasal Cannula 5 lpm RT 09/27/21 00:41 Active Transfer Order Routine Transfer 09/26/21 Completed Medication Summary Generic Name Dose Route Start Last Admin Trade Name Freq PRN Reason Stop Dose Admin Acetaminophen 650 mg 09/27/21 00:41 Acetaminophen 325 Mg Tablet PO 10/27/21 00:40 Q4H PRN PRN PAIN AND/OR FEVER Albuterol/Ipratropium 3 ml 09/27/21 01:00 Ipratropium/Albuterol Sulfate 3 Ml Ampul.Neb IH 10/27/21 00:59 Q6HRT ZOEY Sodium Chloride 1,000 mls @ 125 mls/hr 09/27/21 00:41 Sodium Chloride 0.9% 1000 Ml IV 10/27/21 00:40 .Q8H ZOEY Insulin Human Lispro 0 unit 09/27/21 00:41 Insulin Lispro 1 Unit SQ 10/27/21 00:40 UD PRN HYPERGLYCEMIA Ondansetron HCl 4 mg 09/27/21 00:41 Ondansetron Hcl 4 Mg/2 Ml Vial IV 10/27/21 00:40 Q6H PRN PRN NAUSEA/VOMITING Pantoprazole Sodium 40 mg 09/27/21 10:00 Pantoprazole 40 Mg Vial IV 10/27/21 09:59 Q24H10 ZOEY Discontinued Medications Generic Name Dose Route Start Last Admin Trade Name Rojas PRN Reason Stop Dose Admin Sodium Chloride 1,000 mls @ 999 mls/hr 09/26/21 19:55 09/26/21 21:59 Sodium Chloride 0.9% 1000 Ml IV 09/26/21 20:55 Infused .Q1H1M STA Infusion Sodium Chloride Confirm 09/26/21 20:13 Sodium Chloride 0.9% 1000 Ml Administered 09/26/21 20:14 Dose 1,000 mls @ ud .ROUTE .STK-MED ONE Lab/Rad Data: Laboratory Result Diagrams 09/26/21 20:10 09/26/21 20:10 Laboratory Results 09/26/21 09/26/21 09/26/21 Range/Units 23:15 23:15 22:46 WBC (4.0-10.5) K/mm3 RBC (4.1-5.4) M/mm3 Hgb (12.0-16.0) gm/dl Hct (35-47) % MCV (78-100) fl MCH (26-32) pg MCHC (32-36) g/dl RDW (11.5-14.0) % Plt Count (150-450) K/mm3 MPV (7.5-11.0) fl Gran % (36.0-66.0) % Eos # (Auto) (0-0.5) Absolute Lymphs (auto) (1.0-4.6) Absolute Monos (auto) (0.0-1.3) Lymphocytes % (24.0-44.0) % Monocytes % (0.0-12.0) % Eosinophils % (0.00-5.0) % Basophils % (0.0-0.4) % Absolute Granulocytes (1.4-6.9) Basophils # (0-0.4) Sodium (137-145) mmol/L Potassium (3.5-5.1) mmol/L Chloride (98-107) mmol/L Carbon Dioxide (22-30) mmol/L Anion Gap (5-15) MEQ/L BUN (7-17) mg/dL Creatinine (0.52-1.04) mg/dL Estimated GFR ML/MIN Glucose (74-106) mg/dL POC Glucometer (74 to 106) mg/dL Lactic Acid (0.4-2.0) Calcium (8.4-10.2) mg/dL Magnesium (1.6-2.3) mg/dL Total Bilirubin (0.2-1.3) mg/dL AST (14-36) U/L ALT (0-35) U/L Alkaline Phosphatase (38-126) U/L Troponin I < 0.012 (0.000-0.034) ng/mL NT-Pro-B Natriuret Pep (0-900) pg/mL Serum Total Protein (6.3-8.2) g/dL Albumin (3.5-5.0) g/dL Salicylates (2-20) mg/dL Acetaminophen (10-30) ug/ml Ethyl Alcohol 297 H (0-10) mg/dL Influenza Type A Ag NEGATIVE (NEGATIVE) Influenza Type B Ag NEGATIVE (NEGATIVE) RSV (PCR) NEGATIVE (Negative) SARS-CoV-2 (PCR) NEGATIVE (NEGATIVE) 09/26/21 09/26/21 09/26/21 Range/Units 22:23 20:13 20:10 WBC (4.0-10.5) K/mm3 RBC (4.1-5.4) M/mm3 Hgb (12.0-16.0) gm/dl Hct (35-47) % MCV (78-100) fl MCH (26-32) pg MCHC (32-36) g/dl RDW (11.5-14.0) % Plt Count (150-450) K/mm3 MPV (7.5-11.0) fl Gran % (36.0-66.0) % Eos # (Auto) (0-0.5) Absolute Lymphs (auto) (1.0-4.6) Absolute Monos (auto) (0.0-1.3) Lymphocytes % (24.0-44.0) % Monocytes % (0.0-12.0) % Eosinophils % (0.00-5.0) % Basophils % (0.0-0.4) % Absolute Granulocytes (1.4-6.9) Basophils # (0-0.4) Sodium (137-145) mmol/L Potassium (3.5-5.1) mmol/L Chloride (98-107) mmol/L Carbon Dioxide (22-30) mmol/L Anion Gap (5-15) MEQ/L BUN (7-17) mg/dL Creatinine (0.52-1.04) mg/dL Estimated GFR ML/MIN Glucose (74-106) mg/dL POC Glucometer (74 to 106) mg/dL Lactic Acid 4.1 H 4.6 H (0.4-2.0) Calcium (8.4-10.2) mg/dL Magnesium 2.5 H (1.6-2.3) mg/dL Total Bilirubin (0.2-1.3) mg/dL AST (14-36) U/L ALT (0-35) U/L Alkaline Phosphatase (38-126) U/L Troponin I (0.000-0.034) ng/mL NT-Pro-B Natriuret Pep 264 (0-900) pg/mL Serum Total Protein (6.3-8.2) g/dL Albumin (3.5-5.0) g/dL Salicylates (2-20) mg/dL Acetaminophen (10-30) ug/ml Ethyl Alcohol (0-10) mg/dL Influenza Type A Ag (NEGATIVE) Influenza Type B Ag (NEGATIVE) RSV (PCR) (Negative) SARS-CoV-2 (PCR) (NEGATIVE) 09/26/21 09/26/21 09/26/21 Range/Units 20:10 20:10 19:44 WBC 10.1 (4.0-10.5) K/mm3 RBC 4.53 (4.1-5.4) M/mm3 Hgb 14.7 (12.0-16.0) gm/dl Hct 45.0 (35-47) % MCV 99.3 (78-100) fl MCH 32.5 H (26-32) pg MCHC 32.7 (32-36) g/dl RDW 12.9 (11.5-14.0) % Plt Count 263 (150-450) K/mm3 MPV 9.5 (7.5-11.0) fl Gran % 74.5 H (36.0-66.0) % Eos # (Auto) 0.01 (0-0.5) Absolute Lymphs (auto) 1.99 (1.0-4.6) Absolute Monos (auto) 0.54 (0.0-1.3) Lymphocytes % 19.8 L (24.0-44.0) % Monocytes % 5.4 (0.0-12.0) % Eosinophils % 0.1 (0.00-5.0) % Basophils % 0.2 (0.0-0.4) % Absolute Granulocytes 7.50 H (1.4-6.9) Basophils # 0.02 (0-0.4) Sodium 149 H (137-145) mmol/L Potassium 4.3 (3.5-5.1) mmol/L Chloride 109 H (98-107) mmol/L Carbon Dioxide 23 (22-30) mmol/L Anion Gap 21.9 H (5-15) MEQ/L BUN 10 (7-17) mg/dL Creatinine 0.79 (0.52-1.04) mg/dL Estimated GFR > 60.0 ML/MIN Glucose 110 H (74-106) mg/dL POC Glucometer 111 H (74 to 106) mg/dL Lactic Acid (0.4-2.0) Calcium 9.3 (8.4-10.2) mg/dL Magnesium (1.6-2.3) mg/dL Total Bilirubin 0.60 (0.2-1.3) mg/dL AST 24 (14-36) U/L ALT 10 (0-35) U/L Alkaline Phosphatase 80 (38-126) U/L Troponin I (0.000-0.034) ng/mL NT-Pro-B Natriuret Pep (0-900) pg/mL Serum Total Protein 7.9 (6.3-8.2) g/dL Albumin 5.0 (3.5-5.0) g/dL Salicylates < 1.0 L (2-20) mg/dL Acetaminophen < 10 L (10-30) ug/ml Ethyl Alcohol 382 H (0-10) mg/dL Influenza Type A Ag (NEGATIVE) Influenza Type B Ag (NEGATIVE) RSV (PCR) (Negative) SARS-CoV-2 (PCR) (NEGATIVE) - Progress Progress: improved Progress Note: 09/26/21 22:39 Patient was awake and alert but confused on presentation. Placed on 5 L oxygen which she is on normally and her saturation is around 95%. She is not in any distress. EKG showed sinus tach without any ST elevation. Chest x-ray negative for any acute findings. Has blood alcohol of 380s with elevated lactate and gap which I believe is secondary to alcohol relate I have obtained CT head and cervical spine which are negative per preliminary report. Patient isd. Moving all 4 extremities and no focal neuro deficits obviously. She is much more awake and alert and getting more oriented on reevaluation. Discussed with and patient is being admitted overnight for observation. Discussed with : Nash Counseled pt/family regarding: lab results, diagnosis, rad results, smoking cessation - Departure Departure Disposition: Observation Clinical Impression: Alcohol intoxication, AMS (altered mental status), Elevated lactic acid level Condition: Stable Critical Care Time: No
[2021-09-26 20:29] LABS: Basophil (Absolute #) 0.02 (0-0.4); Eosinophil % 0.1 % (0.00-5.0); Eosinophil (Absolute #) 0.01 (0-0.5); Hemoglobin 14.7 gm/dl (12.0-16.0); Lymphocyte (Absolute #) 1.99 (1.0-4.6); Lymphocytes % 19.8 % (24.0-44.0); Mean Cell Volume 99.3 fl (78-100); Mean Corpuscular Hemoglobin 32.5 pg (26-32); Mean Corpuscular Hgb Concent. 32.7 g/dl (32-36); Mean Platelet Volume 9.5 fl (7.5-11.0); Monocyte (Absolute #) 0.54 (0.0-1.3); Monocytes % 5.4 % (0.0-12.0); Neutrophil % 74.5 % (36.0-66.0); Platelet Count 263 K/mm3 (150-450); Red Blood Count 4.53 M/mm3 (4.1-5.4); Red Cell Distribution Width 12.9 % (11.5-14.0); White Blood Count 10.1 K/mm3 (4.0-10.5)
[2021-09-26 20:32] LABS: ACETAMINOPHEN < 10 ug/ml (10-30); ALKALINE PHOSPHATASE 80 U/L (38-126); ANION GAP 21.9 MEQ/L (5-15); BLOOD UREA NITROGEN 10 mg/dL (7-17); CHLORIDE 109 mmol/L (98-107); Calcium 9.3 mg/dL (8.4-10.2); Carbon Dioxide 23 mmol/L (22-30); Creatinine 1 0.79 mg/dL (0.52-1.04); EST GLOMERULAR FILTRATION RATE > 60.0 ML/MIN; Glucose 110 mg/dL (74-106); Potassium 4.3 mmol/L (3.5-5.1); SALICYLATE < 1.0 mg/dL (2-20); SGOT/AST 24 U/L (14-36); SGPT/ALT 10 U/L (0-35); SODIUM 149 mmol/L (137-145); Total Protein 7.9 g/dL (6.3-8.2)
[2021-09-26 20:40] LABS: MAGNESIUM 2.5 mg/dL (1.6-2.3)
[2021-09-26 20:41] LABS: ETHYL ALCOHOL 382 mg/dL (0-10)
[2021-09-26 23:24] LABS: INFLUENZA A NEGATIVE (NEGATIVE); INFLUENZA B NEGATIVE (NEGATIVE); RESPIRATORY SYNCTIAL VIRUS NEGATIVE (Negative); SARS-CoV-2 Xpert Express NEGATIVE (NEGATIVE)
[2021-09-27] MEDS ORDERED: Zofran 4 MG/2 ML VIAL IV PRN (00:41)
[2021-09-27] MEDS ORDERED: HUMALOG SQ PRN (00:41)
[2021-09-27] MEDS ORDERED: Sodium Chloride 0.9% 1000 ML 1,000 ML IV SCH (00:41)
[2021-09-27] MEDS ORDERED: TYLENOL 325 MG PO PRN (00:41)
[2021-09-27] MEDS ORDERED: DUONEB 0.5-3 MG/3 ml Neb IH SCH (01:00)
[2021-09-27 02:15] LABS: Bacteria RARE /HPF (NEGATIVE); RBC 0-2 /HPF (0-2); WBC 0-2 /HPF (0-5)
[2021-09-27 02:16] LABS: Appearance CLEAR (CLEAR); Glucose >=1000 mg/dL (NEGATIVE)
[2021-09-27 02:17] LABS: Bilirubin NEGATIVE (NEGATIVE); Ketones NEGATIVE (NEGATIVE); Nitrite NEGATIVE (NEGATIVE); Ph 5.5 (5-6); Protein,Urine Dip NEGATIVE (Negative); RBC SMALL Ery/ul (0-5); Specific Gravity 1.005 (1.005-1.025); Urine Cultured Indicated? NO; Urobilinogen 0.2 mg/dL (0-1)
[2021-09-27 02:18] LABS: Dipstick done @ ? MAIN LAB
[2021-09-27 02:25] LABS: Amphetamine,Urine NEGATIVE (NEGATIVE); Barbiturate,Urine NEGATIVE (NEGATIVE); Benzodiazepine,Urine NEGATIVE (NEGATIVE); Cocaine,Urine NEGATIVE (NEGATIVE); Methadone,Urine NEGATIVE (NEGATIVE); Opiate,Urine NEGATIVE (NEGATIVE); PCP,Urine NEGATIVE (NEGATIVE); THC,Urine POSITIVE (NEGATIVE)
[2021-09-27 06:15] VITALS: BP 115/74; PULSE 100; O2SAT 96
--- NOTE | 2021-09-27 08:40 | XRAY ---
Indication: Cough. Comparison: July 15, 2021. Portable apical lordotic chest again hyperinflated and clear. Heart not enlarged. Bony thorax intact again with mild osteopenia and degenerative changes. No new/acute findings.
--- NOTE | 2021-09-27 08:42 | XRAY ---
Indication: Pain following fall. Comparison: None 3 view right shoulder demonstrates mild osteopenia and mild left carotid calcifications. No other bony, articular, or soft tissue abnormalities.
--- NOTE | 2021-09-27 08:46 | XRAY ---
Indication: Status post fall. Uncooperative and intoxicated. Multiple contiguous axial images obtained through the head without contrast. Comparison: None Ventriculosulcal pattern appears symmetric. No acute intracranial hemorrhage, abnormal extra-axial fluid collection, or mass effect. Fourth ventricle is midline without hydrocephalus. Mazariegos-white matter differentiation preserved. Bony calvarium intact. Visualized paranasal sinuses and mastoid air cells are clear. Impression: Negative CT head without contrast exam.
--- NOTE | 2021-09-27 08:48 | XRAY ---
Indication: Status post fall. Uncooperative and intoxicated. Multiple contiguous axial images obtained through the cervical spine. Sagittal and coronal reformatted images obtained. Comparison: None Axial images negative for acute fracture, suspicious bony lesions, or spinal canal stenosis. Minimal C4-C6 degenerative endplate spurring. Facets are symmetric. Sagittal and coronal reformatted images demonstrates normal alignment. Minimal C4-C5 disc space narrowing. No acute compression fracture, subluxation, or jumped facet. Normal appearing craniocervical junction. Visualized noncontrasted soft tissues demonstrates mild bilateral carotid calcifications and biapical pulmonary emphysema with scattered fibrosis/scarring. Impression: 1. Negative acute fracture/subluxation. 2. C4-C6 degenerative changes, arteriosclerotic disease, and pulmonary emphysema.
[2021-09-27] MEDS ORDERED: PROTONIX 40 MG IV IV SCH (10:00)
== END 2021-09-27 07:34 | disposition left against medical advice (07) ==
LOC: ED 19:39 → ICU 09-27 00:41
PROVIDERS: ADMIT General Practice; ATTEND General Practice
DX: R41.82 Altered mental status, unspecified (principal); F10.120 Alcohol abuse with intoxication, uncomplicated; R79.89 Other specified abnormal findings of blood chemistry; J44.9 Chronic obstructive pulmonary disease, unspecified; E11.9 Type 2 diabetes mellitus without complications; K21.9 Gastro-esophageal reflux disease without esophagitis; Z72.0 Tobacco use; Z20.828 Contact with and (suspected) exposure to other viral communicable diseases; Z99.81 Dependence on supplemental oxygen; Z79.899 Other long term (current) drug therapy; W18.30XA Fall on same level, unspecified, initial encounter
CPT/HCPCS: 0241U; 36000; 36415; 70450; 71045; 72125; 73030; 80053; 80307; 81015; 82947; 83605; 83735; 83880; 84484; 85025; 87040; 93005; 93041; 96360; 99285; G0378; G0480

== ENCOUNTER 2022-05-15 05:10 | Observation (INO) | payer MEDICARE ==
[2022-05-15] MEDS ORDERED: DUONEB 0.5-3 MG/3 ml Neb IH ONE ×2 (05:39→05:44)
[2022-05-15] MEDS ORDERED: solu-MEDROL 125 MG, Sterile H2O 10 ml 2 ML IV ONE ×2 (05:46)
[2022-05-15] MEDS ORDERED: Ativan 2 MG/1 ML VIAL IV ONE (05:48)
--- NOTE | 2022-05-15 05:49 | ERPHSYRPT ---
- History of Present Illness Source: patient, EMS Exam Limitations: no limitations Patient Subjective Stated Complaint: pt states "I have been sick off and on for about 7 months but the past couple days I have been more SOB." Triage Nursing Assessment: Pt presents to ED via Medic 1, alert and oriented x3, skin pwd, lung sounds coarse wheezes, pt c/o increased sob x3 days, pt has hx of COPD and wears 3L NC normally at all times, ems increased o2 to 4 L NC and patient is currently sating 97%, unknown of original saturation with the 3 L NC before titrating to 4 L NC, per ems pt was extremely anxious upon arrival and was c/o nausea, pt was given 4 mg zofran IV, 20 G IV R AC in place upon arrival Timing/Duration: day(s) (Worse in the last 2 days), intermittent, worse Severity of Dyspnea-Max: mild (To moderate) Severity of Dyspnea-Current: mild Possible Cause: frequent episodes Modifying Factors: Improves With: activity Associated Symptoms: anxiety, wheezing, No chest pain/discomfort Hx Tetanus, Diphtheria Vaccination/Date Given: (unknown) Hx Influenza Vaccination/Date Given: (unknown) Hx Pneumococcal Vaccination/Date Given: (unknown) Immunizations Up to Date: No <ASHWINI SHELL - Last Filed: 05/15/22 07:04> <TRINI CLEMONS - Last Filed: 05/15/22 22:05> - History of Present Illness Time Seen by Provider: 05/15/22 05:30 Physician History: This is a 56-year-old white female patient of Dr. Denise Licea who was brought in by the ambulance service because of worsening shortness of air over the last 2 days. However, he does states she has been intermittently sick over the last 7 months. Patient is supposed to be on 3 L nasal cannula oxygen. However in the last 7 months she has intermittently increased this to 5 L per nasal cannula. She states that her prescribing physician is aware of this. EMS arrived to the patient's home and increased the patient's oxygen via nasal cannula to 4 L. She was nauseated and she did receive from antiemetics. She did not receive a breathing treatment and she did not receive any steroid infusion during transportation to the emergency room. Patient has a history of significant anxiety but has not been taking any of those types of medications for several months. Patient has a history of hyperlipidemia, gastroesophageal reflux disease, diabetes, anxiety, COPD, rheumatoid arthritis. She continues to smoke cigarettes daily but has significantly decreased the number of cigarettes she smokes in a day. He denies chest pain. She has no abdominal pain. He has had no vomiting or diarrhea. (ASHWINI SHELL) Allergies/Adverse Reactions: No Known Drug Allergies Allergy (Verified 05/15/22 05:13) Home Medications: Albuterol Sulfate [Albuterol Sulfate Hfa] 2 puff PO Q4HWA 09/26/21 [History] Dapagliflozin Propanediol [Farxiga] 10 mg PO DAILY 09/26/21 [History] Fluticasone/Umeclidin/Vilanter [Trelegy Ellipta 100-62.5-25] 1 puff PO DAILY 09/26/21 [History] PANTOPRAZOLE 40 mg Tablet [Protonix 40MG Tablet] 40 tab PO BID 09/26/21 [History] Prednisone 10 mg [Deltasone 10 mg] 10 mg PO DAILY 09/26/21 [History] Atorvastatin Calcium 10 mg PO DAILY 05/15/22 [History] Travel Risk - International Travel Have you traveled outside of the country in past 3 weeks: No - Coronavirus Screening Are you exhibiting any of the following symptoms?: No Close contact with a COVID-19 positive Pt in past 14-21 Days: No - Vaccine Status Have you recieved a Covid-19 vaccination: No <ASHWINI SHELL - Last Filed: 05/15/22 07:04> - Review of Systems Constitutional: No Symptoms Eyes: No Symptoms Ears, Nose, & Throat: No Symptoms Respiratory: Dyspnea, Wheezing Cardiac: No Symptoms Abdominal/Gastrointestinal: No Symptoms Genitourinary Symptoms: No Symptoms Musculoskeletal: No Symptoms Skin: No Symptoms Neurological: No Symptoms Psychological: No Symptoms Endocrine: No Symptoms Hematologic/Lymphatic: No Symptoms Immunological/Allergic: No Symptoms All Other Systems: Reviewed and Negative <ASHWINI SHELL - Last Filed: 05/15/22 07:04> - Past Medical History Pertinent Past Medical History: Yes Neurological History: No Pertinent History ENT History: No Pertinent History Cardiac History: High Cholesterol Respiratory History: COPD, Emphysema Endocrine Medical History: Diabetes Type II Musculoskeletal History: Rheumatoid Arthritis, Other GI Medical History: Diverticulitis History: No Pertinent History Psycho-Social History: Anxiety Female Reproductive Disorders: No Pertinent History Other Medical History: is time. - Past Surgical History Past Surgical History: Yes Neuro Surgical History: No Pertinent History Cardiac: No Pertinent History Respiratory: No Pertinent History Gastrointestinal: No Pertinent History Genitourinary: No Pertinent History Musculoskeletal: No Pertinent History Female Surgical History: No Pertinent History Other Surgical History: Surgical history obtained from medical history from [facility] visit at this time due to inability to obtain this information from the patient at this time. - Social History Smoking Status: Current every day smoker How long have you smoked: 42 years Exposure to second hand smoke: Yes Drug Use: none Patient Lives Alone: No <ASHWINI SHELL - Last Filed: 05/15/22 07:04> - Physical Exam General Appearance: no apparent distress, alert, anxiety, thin Eye Exam: PERRL/EOMI, eyes nml inspection Ears, Nose, Throat Exam: hearing grossly normal, normal ENT inspection, normal pharynx Neck Exam: normal inspection, non-tender, supple, full range of motion Respiratory Exam: airway intact, wheezing (Bilateral diffuse expiratory), No chest tenderness, No respiratory distress Cardiovascular/Chest Exam: tachycardia Abdominal/Gastrointestinal Exam: soft, normal bowel sounds, No tenderness Rectal Exam: not done Extremity Exam: non-tender, normal range of motion, normal inspection, normal capillary refill, no calf tenderness, no pedal edema, pelvis stable Neurologic Exam: alert, oriented x 3, cooperative, corporate concierge II-XII nml as tested, normal mood/affect, nml cerebellar function, nml station & gait, sensation nml Skin Exam: normal color, warm, dry Lymphatic Exam: adenopathy SpO2 Interpretation: borderline oxygenation SpO2: 94 O2 Delivery: Nasal Cannula <ASHWINI SHELL - Last Filed: 05/15/22 07:04> - Nursing Vital Signs Nursing Vital Signs: Initial Vital Signs Temperature 99.0 F 05/15/22 05:15 Pulse Rate 135 H 05/15/22 05:15 Respiratory Rate 13 05/15/22 05:15 Blood Pressure 93/72 05/15/22 05:15 O2 Sat by Pulse Oximetry 4 L 05/15/22 05:15 Pain Scale Pain Intensity 0 - Course Nursing assessment & vital signs reviewed: Yes EKG Interpreted by Me: RATE (124), Sinus Tach, Other (PVCs present. No acute ischemic changes.) <ASHWINI SHELL - Last Filed: 05/15/22 07:04> Ordered Tests: Active Orders 24 hr Category Date Time Status Up With Assistance ROUTINE Activity 05/15/22 12:13 Active Hvac Design Mechanical Engineer STAT Care 05/15/22 05:47 Completed Code Status Order ROUTINE Care 05/15/22 12:13 Active EKG-ER Only STAT Care 05/15/22 05:46 Completed Fall Protocol Q1H Care 05/15/22 12:13 Active IV Care Q6H Care 05/15/22 12:13 Active IV Insertion STAT Care 05/15/22 05:46 Completed POCT Glucose Check ACHS Care 05/15/22 12:[address] in Observation ROUTINE Care 05/15/22 12:13 Active Pulse Oximetry (ED) STAT Care 05/15/22 05:46 Completed Deacon Plascencia, Apply ROUTINE Care 05/15/22 12:13 Active Weight,Daily 0600 Care 05/15/22 12:13 Active CHEST 1 VIEW (PORTABLE) Stat Exams 05/15/22 05:48 Completed CHEST WITH CONTRAST [CT] Stat Exams 05/15/22 07:01 Completed BLOOD CULTURE Stat Lab 05/15/22 06:10 Received CBC W DIFF AM.LAB Lab 05/16/22 04:00 Ordered CBC W DIFF Stat Lab 05/15/22 06:05 Completed CMP AM.LAB Lab 05/16/22 04:00 Ordered CMP Stat Lab 05/15/22 06:05 Completed D-DIMER QUANTITATIVE Stat Lab 05/15/22 06:05 Completed Lactic Acid Routine Lab 05/15/22 10:17 Completed Lactic Acid Stat Lab 05/15/22 05:27 Completed NT PRO BNP Stat Lab 05/15/22 06:05 Completed TROPONIN Q4H Lab 05/15/22 06:05 Completed TROPONIN Q4H Lab 05/15/22 10:15 Completed TROPONIN Q4H Lab 05/15/22 14:21 Completed Oxygen Nasal Cannula 5 lpm RT 05/15/22 12:13 Active Respiratory Therapy Assessment DAILY RT 05/15/22 05:43 Active Transfer Order Routine Transfer 05/15/22 Completed Medication Summary Generic Name Dose Route Start Last Admin Trade Name Freq PRN Reason Stop Dose Admin Acetaminophen 650 mg 05/15/22 12:13 Acetaminophen 325 Mg Tablet PO 06/14/22 12:12 Q4H PRN PRN PAIN AND/OR FEVER Albuterol/Ipratropium 3 ml 05/15/22 13:00 05/15/22 19:13 Ipratropium/Albuterol Sulfate 3 Ml Ampul.Neb IH 06/14/22 12:59 3 ml Q6HRT ZOEY Administration Methylprednisolone Sodium 0 mg 05/15/22 12:30 05/15/22 18:29 Succinate 60 mg/ Sterile Water IV 06/14/22 12:29 60 mg 2 ml Q6HT ZOEY Administration Azithromycin 500 mg in 250 mls @ 250 mls/hr 05/15/22 12:13 05/15/22 12:18 Zithromax 500 Mg/ 250 Ml Nacl Premix IV 06/14/22 12:12 Not Given Q24H10 ZOEY Ceftriaxone Sodium/Dextrose 2 g in 50 mls @ 100 mls/hr 05/15/22 12:13 05/15/22 12:17 Rocephin 2 Gm-D5w 50ml Bag IV 05/18/22 12:12 Not Given Q24H10 ZOEY Lorazepam 1 mg 05/15/22 22:00 05/15/22 21:10 Lorazepam 1 Mg Tablet PO 06/14/22 21:59 1 mg HS ZOEY Administration Miscellaneous Information 1 each 05/15/22 17:00 Medication Intervention 1 Each Each 06/14/22 16:59 .RN TO CHECK ZOEY Morphine Sulfate 2 mg 05/15/22 12:13 Morphine Sulfate 2 Mg/Ml Inj IV 05/20/22 12:12 Q4H PRN PRN PAIN Non-Formulary Medication 1 each 05/15/22 07:30 Hold Metformin Products For 48hrs 05/17/22 07:30 UD ZOEY Ondansetron HCl 4 mg 05/15/22 12:13 Ondansetron Hcl 4 Mg/2 Ml Vial IV 06/14/22 12:12 Q6H PRN PRN NAUSEA/VOMITING Pantoprazole Sodium 40 mg 05/15/22 22:00 05/15/22 21:10 Protonix (Pantoprazole) 40 Mg Tablet PO 06/14/22 21:59 40 mg BID ZOEY Administration Trelegy Ellipta 1 each 05/16/22 07:00 100mcg/62.5mcg/25mcg 06/15/22 06:59 0700 ZOEY Prednisone 10 mg 05/16/22 10:00 Prednisone 10 Mg Tablet PO 06/15/22 09:59 DAILY ZOEY Simvastatin 10 mg 05/16/22 10:00 Simvastatin 10 Mg Tablet PO 06/15/22 09:59 DAILY ZOEY Discontinued Medications Generic Name Dose Route Start Last Admin Trade Name Rojas PRN Reason Stop Dose Admin Albuterol/Ipratropium Confirm 05/15/22 05:39 Ipratropium/Albuterol Sulfate 3 Ml Ampul.Neb Administered 05/15/22 05:40 Dose 3 ml IH .STK-MED ONE Albuterol/Ipratropium 3 ml 05/15/22 05:44 05/15/22 05:45 Ipratropium/Albuterol Sulfate 3 Ml Ampul.Neb IH 05/15/22 05:45 3 ml STAT ONE Administration Methylprednisolone Sodium 0 mg 05/15/22 05:46 05/15/22 05:53 Succinate 125 mg/ Sterile IV 05/15/22 05:47 125 mg Water 2 ml STAT ONE Administration Sodium Chloride 500 mls @ 500 mls/hr 05/15/22 07:01 05/15/22 08:29 Sodium Chloride 0.9% 500 Ml IV 05/15/22 08:00 Infused .Q1H ONE Infusion Sodium Chloride Confirm 05/15/22 07:07 Sodium Chloride 0.9% 500 Ml Administered 05/15/22 07:08 Dose 500 mls @ ud IV .STK-MED ONE Ceftriaxone Sodium/Dextrose 2 g in 50 mls @ 100 mls/hr 05/15/22 07:47 05/15/22 08:30 Rocephin 2 Gm-D5w 50ml Bag IV 05/15/22 08:16 Infused STAT STA Infusion Azithromycin 500 mg in 250 mls @ 250 mls/hr 05/15/22 07:47 05/15/22 09:33 Zithromax 500 Mg/ 250 Ml Nacl Premix IV 05/15/22 08:46 Infused STAT STA Infusion Ceftriaxone Sodium/Dextrose Confirm 05/15/22 07:57 Rocephin 2 Gm-D5w 50ml Bag Administered 05/15/22 07:58 Dose 2 g in 50 mls @ ud IV .STK-MED ONE Azithromycin Confirm 05/15/22 08:28 Zithromax 500 Mg/ 250 Ml Nacl Premix Administered 05/15/22 08:29 Dose 500 mg in 250 mls @ ud IV .STK-MED ONE Lorazepam 1 mg 05/15/22 05:48 05/15/22 05:52 Lorazepam 2 Mg/1 Ml 2 Mg Vial IV 05/15/22 05:49 1 mg STAT ONE Administration Lorazepam Confirm 05/15/22 05:52 Lorazepam 2 Mg/1 Ml 2 Mg Vial Administered 05/15/22 05:53 Dose 2 mg .ROUTE .STK-MED ONE Methylprednisolone Sodium Succinate Confirm 05/15/22 05:50 Methylprednis Sod Succ 125 Mg/2 Ml Vial Administered 05/15/22 05:51 Dose 125 mg .ROUTE .STK-MED ONE Pantoprazole Sodium 40 mg 05/15/22 12:30 05/15/22 14:09 Pantoprazole 40 Mg Vial IV 06/14/22 12:29 40 mg Q24H10 ZOEY Administration Patient Own Medication 1 each 05/16/22 07:00 05/15/22 13:06 Patient Own Med Misc IH 06/15/22 06:59 1 each DAILY ZOEY Administration Sterile Water Confirm 05/15/22 05:50 Water For Injection,Sterile 10 Ml Vial Administered 05/15/22 05:51 Dose 10 ml IJ .STK-MED ONE Lab/Rad Data: Laboratory Result Diagrams 05/15/22 06:05 05/15/22 06:05 Laboratory Results 05/15/22 05/15/22 05/15/22 Range/Units 12:02 10:17 10:15 WBC (4.0-10.5) x10^3/uL RBC (4.1-5.4) x10^6/uL Hgb (12.0-16.0) g/dL Hct (35-47) % MCV (78-100) fL MCH (26-32) pg MCHC (32-36) g/dL RDW (11.5-14.0) % Plt Count (150-450) x10^3/uL MPV (7.5-11.0) fL Gran % (36.0-66.0) % Immature Gran % (Auto) (0.00-0.4) % Nucleat RBC Rel Count (0.00-0.1) % Eos # (Auto) (0-0.5) x10^3/uL Immature Gran # (Auto) (0.00-0.03) x10^3u/L Absolute Lymphs (auto) (1.0-4.6) x10^3/uL Absolute Monos (auto) (0.0-1.3) x10^3/uL Absolute Nucleated RBC (0.00-0.01) x10^3u/L Lymphocytes % (24.0-44.0) % Monocytes % (0.0-12.0) % Eosinophils % (0.00-5.0) % Basophils % (0.0-0.4) % Absolute Granulocytes (1.4-6.9) x10^3/uL Basophils # (0-0.4) x10^3/uL D-Dimer (0.0-0.50) mg/L Sodium (137-145) mmol/L Potassium (3.5-5.1) mmol/L Chloride (98-107) mmol/L Carbon Dioxide (22-30) mmol/L Anion Gap (5-15) MEQ/L BUN (7-17) mg/dL Creatinine (0.52-1.04) mg/dL Estimated GFR ML/MIN Glucose (74-106) mg/dL POC Glucometer 115 H (74 to 106) mg/dL Lactic Acid 0.7 (0.4-2.0) Calcium (8.4-10.2) mg/dL Total Bilirubin (0.2-1.3) mg/dL AST (14-36) U/L ALT (0-35) U/L Alkaline Phosphatase (38-126) U/L Troponin I < 0.012 (0.000-0.034) ng/mL NT-Pro-B Natriuret Pep (0-900) pg/mL Serum Total Protein (6.3-8.2) g/dL Albumin (3.5-5.0) g/dL Influenza Type A Ag (NEGATIVE) Influenza Type B Ag (NEGATIVE) RSV (PCR) (Negative) SARS-CoV-2 (PCR) (NEGATIVE) 05/15/22 05/15/22 05/15/22 Range/Units 06:15 06:05 06:05 WBC (4.0-10.5) x10^3/uL RBC (4.1-5.4) x10^6/uL Hgb (12.0-16.0) g/dL Hct (35-47) % MCV (78-100) fL MCH (26-32) pg MCHC (32-36) g/dL RDW (11.5-14.0) % Plt Count (150-450) x10^3/uL MPV (7.5-11.0) fL Gran % (36.0-66.0) % Immature Gran % (Auto) (0.00-0.4) % Nucleat RBC Rel Count (0.00-0.1) % Eos # (Auto) (0-0.5) x10^3/uL Immature Gran # (Auto) (0.00-0.03) x10^3u/L Absolute Lymphs (auto) (1.0-4.6) x10^3/uL Absolute Monos (auto) (0.0-1.3) x10^3/uL Absolute Nucleated RBC (0.00-0.01) x10^3u/L Lymphocytes % (24.0-44.0) % Monocytes % (0.0-12.0) % Eosinophils % (0.00-5.0) % Basophils % (0.0-0.4) % Absolute Granulocytes (1.4-6.9) x10^3/uL Basophils # (0-0.4) x10^3/uL D-Dimer 1.01 H* (0.0-0.50) mg/L Sodium (137-145) mmol/L Potassium (3.5-5.1) mmol/L Chloride (98-107) mmol/L Carbon Dioxide (22-30) mmol/L Anion Gap (5-15) MEQ/L BUN (7-17) mg/dL Creatinine (0.52-1.04) mg/dL Estimated GFR ML/MIN Glucose (74-106) mg/dL POC Glucometer (74 to 106) mg/dL Lactic Acid (0.4-2.0) Calcium (8.4-10.2) mg/dL Total Bilirubin (0.2-1.3) mg/dL AST (14-36) U/L ALT (0-35) U/L Alkaline Phosphatase (38-126) U/L Troponin I < 0.012 (0.000-0.034) ng/mL NT-Pro-B Natriuret Pep (0-900) pg/mL Serum Total Protein (6.3-8.2) g/dL Albumin (3.5-5.0) g/dL Influenza Type A Ag NEGATIVE (NEGATIVE) Influenza Type B Ag NEGATIVE (NEGATIVE) RSV (PCR) POSITIVE (Negative) SARS-CoV-2 (PCR) POSITIVE A (NEGATIVE) 05/15/22 05/15/22 05/15/22 Range/Units 06:05 06:05 05:27 WBC 14.4 H (4.0-10.5) x10^3/uL RBC 4.84 (4.1-5.4) x10^6/uL Hgb 15.4 (12.0-16.0) g/dL Hct 48.9 H (35-47) % MCV 101.0 H (78-100) fL MCH 31.8 (26-32) pg MCHC 31.5 L (32-36) g/dL RDW 13.2 (11.5-14.0) % Plt Count 232 (150-450) x10^3/uL MPV 9.4 (7.5-11.0) fL Gran % 86.7 H (36.0-66.0) % Immature Gran % (Auto) 0.5 H (0.00-0.4) % Nucleat RBC Rel Count 0.0 (0.00-0.1) % Eos # (Auto) 0.02 (0-0.5) x10^3/uL Immature Gran # (Auto) 0.07 H (0.00-0.03) x10^3u/L Absolute Lymphs (auto) 0.63 L (1.0-4.6) x10^3/uL Absolute Monos (auto) 1.15 (0.0-1.3) x10^3/uL Absolute Nucleated RBC 0.00 (0.00-0.01) x10^3u/L Lymphocytes % 4.4 L (24.0-44.0) % Monocytes % 8.0 (0.0-12.0) % Eosinophils % 0.1 (0.00-5.0) % Basophils % 0.3 (0.0-0.4) % Absolute Granulocytes 12.43 H (1.4-6.9) x10^3/uL Basophils # 0.05 (0-0.4) x10^3/uL D-Dimer (0.0-0.50) mg/L Sodium 135 L (137-145) mmol/L Potassium 3.9 (3.5-5.1) mmol/L Chloride 97 L (98-107) mmol/L Carbon Dioxide 33 H (22-30) mmol/L Anion Gap 9.0 (5-15) MEQ/L BUN 8 (7-17) mg/dL Creatinine 0.46 L (0.52-1.04) mg/dL Estimated GFR > 60.0 ML/MIN Glucose 111 H (74-106) mg/dL POC Glucometer (74 to 106) mg/dL Lactic Acid 2.2 H (0.4-2.0) Calcium 8.8 (8.4-10.2) mg/dL Total Bilirubin 1.10 (0.2-1.3) mg/dL AST 22 (14-36) U/L ALT 16 (0-35) U/L Alkaline Phosphatase 87 (38-126) U/L Troponin I (0.000-0.034) ng/mL NT-Pro-B Natriuret Pep 213 (0-900) pg/mL Serum Total Protein 7.8 (6.3-8.2) g/dL Albumin 4.3 (3.5-5.0) g/dL Influenza Type A Ag (NEGATIVE) Influenza Type B Ag (NEGATIVE) RSV (PCR) (Negative) SARS-CoV-2 (PCR) (NEGATIVE) - Progress Progress: improved, re-examined Air Movement: fair Blood Culture(s) Obtained: Yes Antibiotics given: Yes Counseled pt/family regarding: lab results, diagnosis, rad results <ASHWINI SHELL - Last Filed: 05/15/22 07:04> <TRINI CLEMONS - Last Filed: 05/15/22 22:05> - Progress Progress Note: 05/15/22 07:04 Chest x-ray shows bilateral small pleural effusions with a right lung infiltrate. 05/15/22 07:06 pt care transferred to dr. clemons at shift change. he will make final disposition (ASHWINI SHELL) 05/15/22 08:44 Patient is checked out to me at shift change from Dr. Shell with pending CTA. Patient has bilateral pneumonia, started on Rocephin and Zithromax. Discussed with Dr. Ibarra, agreed with admission. (TRINI CLEMONS) - Departure Departure Disposition: Observation Critical Care Time: No <ASHWINI SHELL - Last Filed: 05/15/22 07:04> - Departure Critical Care Time: No <TRINI CLEMONS - Last Filed: 05/15/22 22:05> - Departure Clinical Impression: Bilateral pleural effusion, Pneumonia Condition: Stable
[2022-05-15] MEDS ORDERED: solu-MEDROL ONE (05:50)
[2022-05-15] MEDS ORDERED: Sterile H2O 10 ml IJ ONE (05:50)
[2022-05-15] MEDS ORDERED: Ativan 2 MG/1 ML VIAL ONE (05:52)
[2022-05-15 06:29] LABS: Absolute Neutrophil Ct (ANC) 12.43 x10^3/uL (1.4-6.9); Basophil (Absolute #) 0.05 x10^3/uL (0-0.4); Eosinophil % 0.1 % (0.00-5.0); Eosinophil (Absolute #) 0.02 x10^3/uL (0-0.5); Hematocrit 48.9 % (35-47); Hemoglobin 15.4 g/dL (12.0-16.0); Lymphocyte (Absolute #) 0.63 x10^3/uL (1.0-4.6); Lymphocytes % 4.4 % (24.0-44.0); Mean Corpuscular Hemoglobin 31.8 pg (26-32); Mean Corpuscular Hgb Concent. 31.5 g/dL (32-36); Mean Platelet Volume 9.4 fL (7.5-11.0); Monocyte (Absolute #) 1.15 x10^3/uL (0.0-1.3); Neutrophil % 86.7 % (36.0-66.0); Platelet Count 232 x10^3/uL (150-450); Red Blood Count 4.84 x10^6/uL (4.1-5.4); Red Cell Distribution Width 13.2 % (11.5-14.0); White Blood Count 14.4 x10^3/uL (4.0-10.5)
[2022-05-15 06:48] LABS: ALBUMIN 4.3 g/dL (3.5-5.0); ALKALINE PHOSPHATASE 87 U/L (38-126); BLOOD UREA NITROGEN 8 mg/dL (7-17); CHLORIDE 97 mmol/L (98-107); Calcium 8.8 mg/dL (8.4-10.2); Carbon Dioxide 33 mmol/L (22-30); Creatinine 1 0.46 mg/dL (0.52-1.04); EST GLOMERULAR FILTRATION RATE > 60.0 ML/MIN; Glucose 111 mg/dL (74-106); NT PRO BNP 213 pg/mL (0-900); Potassium 3.9 mmol/L (3.5-5.1); SGOT/AST 22 U/L (14-36); SGPT/ALT 16 U/L (0-35); SODIUM 135 mmol/L (137-145); Total Protein 7.8 g/dL (6.3-8.2)
[2022-05-15 07:01] LABS: INFLUENZA A NEGATIVE (NEGATIVE); INFLUENZA B NEGATIVE (NEGATIVE)
[2022-05-15] MEDS ORDERED: Sodium Chloride 0.9% 500 ML 500 ML IV ONE ×2 (07:01→07:07)
[2022-05-15 07:07] LABS: RESPIRATORY SYNCTIAL VIRUS POSITIVE (Negative); SARS-CoV-2 Xpert Express POSITIVE (NEGATIVE)
[2022-05-15] MEDS ORDERED: HOLD METFORMIN PRODUCTS FOR 48 HOURS MC SCH (07:30)
[2022-05-15] MEDS ORDERED: ROCEPHIN 2 Gm-D5w 50ML BAG** 2 G/50 ML IVPB IV STA (07:47)
[2022-05-15] MEDS ORDERED: Zithromax 500 MG/ 250 ML NaCl Premix 500 MG/250 ML IVPB IV STA (07:47)
[2022-05-15] MEDS ORDERED: ROCEPHIN 2 Gm-D5w 50ML BAG** 2 G/50 ML IVPB IV ONE (07:57)
[2022-05-15] MEDS ORDERED: Zithromax 500 MG/ 250 ML NaCl Premix 500 MG/250 ML IVPB IV ONE (08:28)
--- NOTE | 2022-05-15 08:31 | XRAY ---
Indication: Short of breath, right chest pain, nausea, and vomiting. Elevated d-dimer. Multiple contiguous axial images obtained through the chest using 100 cc Isovue 370 contrast and PE protocol. Comparison: July 09, 2021 Good opacification of the pulmonary arteries to include the lobar and segmental branches. No pulmonary embolus. Heart not enlarged. Aorta is normal in course and caliber. No pathologic mediastinal/hilar lymphadenopathy. Lungs again demonstrates diffuse pulmonary emphysema with now minimal diffuse right lung and lesser degree left upper lobe [id number] opacities favoring pneumonitis/bronchiolitis. No effusion or pneumothorax. Bony thorax intact. Limited upper abdomen demonstrates mild fatty liver. Impression: 1. Negative pulmonary embolus. 2. New minimal diffuse right lung and left upper lobe [id number] opacities favoring pneumonitis/bronchiolitis. 3. Chronic findings including pulmonary edema and fatty liver.
--- NOTE | 2022-05-15 08:33 | XRAY ---
Indication: Short of breath. Comparison: September 26, 2021 Portable chest again demonstrates COPD with new right mid to lower lung patchy airspace disease without consolidation/large effusion. Heart not enlarged. Bony thorax intact again with mild osteopenia.
[2022-05-15] MEDS ORDERED: TYLENOL 325 MG PO PRN (12:13)
[2022-05-15] MEDS ORDERED: MORPHINE SULFATE 2 MG INJ IV PRN (12:13)
[2022-05-15] MEDS ORDERED: Zofran 4 MG/2 ML VIAL IV PRN (12:13)
[2022-05-15] MEDS: ROCEPHIN 2 Gm-D5w 50ML BAG** 2 G/50 ML IVPB IV SCH (12:17)
[2022-05-15] MEDS: Zithromax 500 MG/ 250 ML NaCl Premix 500 MG/250 ML IVPB IV SCH (12:18)
[2022-05-15] MEDS ORDERED: PROTONIX 40 MG IV IV SCH (12:30)
[2022-05-15] MEDS: DUONEB 0.5-3 MG/3 ml Neb IH SCH ×2 (13:06→19:13)
[2022-05-15] MEDS: solu-MEDROL 60 MG, Sterile H2O 10 ml 2 ML IV SCH ×6 (14:09→22:50)
[2022-05-15] MEDS ORDERED: MEDICATION INTERVENTION MC SCH (17:00)
[2022-05-15] MEDS: Ativan 1 MG PO SCH (21:10)
[2022-05-15] MEDS: Protonix 40MG Tablet PO SCH (21:10)
[2022-05-16 04:55] LABS: Hematocrit 46.1 % (35-47); Hemoglobin 14.8 g/dL (12.0-16.0); Mean Cell Volume 99.1 fL (78-100); Mean Corpuscular Hemoglobin 31.8 pg (26-32); Mean Corpuscular Hgb Concent. 32.1 g/dL (32-36); Mean Platelet Volume 9.2 fL (7.5-11.0); Platelet Count 243 x10^3/uL (150-450); Red Blood Count 4.65 x10^6/uL (4.1-5.4); Red Cell Distribution Width 13.1 % (11.5-14.0); White Blood Count 13.4 x10^3/uL (4.0-10.5)
[2022-05-16] MEDS: solu-MEDROL 60 MG, Sterile H2O 10 ml 2 ML IV SCH ×4 (05:07→11:01)
[2022-05-16 05:23] LABS: ALBUMIN 4.1 g/dL (3.5-5.0); ALKALINE PHOSPHATASE 90 U/L (38-126); ANION GAP 7.8 MEQ/L (5-15); BLOOD UREA NITROGEN 17 mg/dL (7-17); CHLORIDE 98 mmol/L (98-107); Calcium 9.4 mg/dL (8.4-10.2); Carbon Dioxide 37 mmol/L (22-30); EST GLOMERULAR FILTRATION RATE > 60.0 ML/MIN; Glucose 159 mg/dL (74-106); Potassium 4.4 mmol/L (3.5-5.1); SGOT/AST 18 U/L (14-36); SGPT/ALT 17 U/L (0-35); SODIUM 138 mmol/L (137-145); Total Protein 7.5 g/dL (6.3-8.2)
[2022-05-16] MEDS ORDERED: PATIENT OWN MEDICATION IH SCH (07:00)
[2022-05-16] MEDS: DUONEB 0.5-3 MG/3 ml Neb IH SCH ×3 (07:38→19:09)
[2022-05-16] MEDS: PATIENT OWN MEDICATION IH SCH (07:39)
[2022-05-16 08:30] LABS: Lymphocytes 3 % (24-44); Monocyte 1 % (0.0-12.0); Total Cells Counted 100
[2022-05-16 08:32] LABS: Platelet Estimate NORMAL (NORMAL)
[2022-05-16] MEDS ORDERED: NON-FORMULARY ITEM (Atorvastatin Calcium [Atorvastatin Calcium] 10 MG Tablet) PO SCH (10:00)
[2022-05-16] MEDS ORDERED: NON-FORMULARY ITEM (Dapagliflozin Propanediol [Farxiga] 10 MG Tablet) PO SCH (10:00)
[2022-05-16] MEDS ORDERED: DELTASONE 10 MG PO SCH (10:00)
[2022-05-16] MEDS: ROCEPHIN 2 Gm-D5w 50ML BAG** 2 G/50 ML IVPB IV SCH (10:14)
[2022-05-16] MEDS: Risperdal 1 MG PO SCH ×2 (10:14→21:00)
[2022-05-16] MEDS: Zocor 10MG PO SCH (10:15)
[2022-05-16] MEDS: Protonix 40MG Tablet PO SCH ×2 (10:15→21:01)
[2022-05-16] MEDS ORDERED: solu-MEDROL ONE (10:57)
[2022-05-16] MEDS: Zithromax 500 MG/ 250 ML NaCl Premix 500 MG/250 ML IVPB IV SCH (11:01)
[2022-05-16] MEDS ORDERED: Toprol Xl 50 MG PO ONE (15:30)
[2022-05-16] MEDS: Ativan 1 MG PO SCH (21:00)
[2022-05-17] MEDS: DUONEB 0.5-3 MG/3 ml Neb IH SCH ×5 (01:15→20:25)
[2022-05-17] MEDS: PATIENT OWN MEDICATION IH SCH (07:50)
[2022-05-17] MEDS: ROCEPHIN 2 Gm-D5w 50ML BAG** 2 G/50 ML IVPB IV SCH (09:40)
[2022-05-17] MEDS: Zocor 10MG PO SCH (09:40)
[2022-05-17] MEDS: Risperdal 1 MG PO SCH ×2 (09:40→22:13)
[2022-05-17] MEDS: Protonix 40MG Tablet PO SCH ×2 (09:41→22:14)
[2022-05-17] MEDS: DELTASONE 20 MG PO SCH (09:41)
[2022-05-17] MEDS: Zithromax 500 MG/ 250 ML NaCl Premix 500 MG/250 ML IVPB IV SCH (10:24)
[2022-05-17] MEDS: PATIENT OWN MEDICATION PO SCH ×2 (12:00)
[2022-05-17] MEDS: Ativan 1 MG PO SCH ×2 (14:39→22:14)
[2022-05-17] MEDS ORDERED: REMDESIVIR 200 MG in Sodium Chloride 0.9% 250 ML 250 ML IV ONE ×2 (15:15→16:30)
--- NOTE | 2022-05-17 15:49 | PCM.NOTE ---
Date and Time: 05/17/22 154 Subjective Assessment: Patient in Covid bed. C/O extreme weakness,coughing spells but not dyspnec.Appetite is good. Is willing to start Remdesivir. Objective Exam General Appearance: no apparent distress Neurologic Exam: alert, oriented x 3, cooperative, normal mood/affect Skin Exam: normal color, warm, dry Ears, Nose, Throat Exam: normal ENT inspection Respiratory Exam: diminished breath sounds, wheezing Cardiovascular Exam: regular rate/rhythm Gastrointestinal/Abdomen Exam: soft, No tenderness Extremity Exam: normal inspection OBJECTIVE DATA Vital Signs: Vital Signs - 24 hr Temp Pulse Resp BP Pulse Ox 05/17/22 14:12 112 H 22 100 05/17/22 11:57 98.7 F 103 H 19 87/57 100 05/17/22 07:56 88 19 100 05/17/22 07:00 98.6 F 86 19 109/68 100 05/17/22 05:48 77 20 100 05/17/22 05:00 20 05/17/22 04:00 98 F 92 H 22 115/64 97 05/17/22 03:45 22 05/17/22 01:51 83 20 100 05/17/22 01:15 87 18 99 05/16/22 23:31 97.6 F 74 20 117/68 100 05/16/22 23:10 18 05/16/22 21:37 98 H 20 95 05/16/22 21:00 20 05/16/22 20:00 97.8 F 100 H 20 112/64 100 05/16/22 19:09 113 H 16 98 05/16/22 18:00 18 05/16/22 17:00 98.4 F 102 H 18 107/62 100 05/16/22 16:00 18 Pain Assessment - Last Documented Pain Intensity 0 Intake and Output: Intake & Output 05/15/22 05/16/22 05/17/22 05/18/22 11:59 11:59 11:59 11:59 Intake Total 2129 1909 300 Balance 2129 1909 300 Weight 53.2 kg 53.2 kg Lab Results: Lab Results-Last 24 Hours 05/16/22 05/16/22 05/17/22 Range/Units 16:36 21:06 06:49 POC Glucometer 171 H 152 H 101 (74 to 106) mg/dL 05/17/22 Range/Units 11:46 POC Glucometer 183 H (74 to 106) mg/dL Assessment/Plan (1) Pneumonia Current Visit: Yes Status: Acute Assessment & Plan: COVID Code(s): J18.9 - PNEUMONIA, UNSPECIFIED ORGANISM (2) RSV (respiratory syncytial virus infection) Current Visit: Yes Status: Acute Assessment & Plan: resp support Code(s): B33.8 - OTHER SPECIFIED VIRAL DISEASES (3) Anxiety Current Visit: Yes Status: Acute Assessment & Plan: Ativan tid ordered Code(s): F41.9 - ANXIETY DISORDER, UNSPECIFIED (4) Hyperthyroidism Current Visit: Yes Status: Chronic Assessment & Plan: restarted home Rx Methimazole Code(s): E05.90 - THYROTOXICOSIS, UNSP WITHOUT THYROTOXIC CRISIS OR STORM
[2022-05-17] MEDS: ENOXAPARIN SODIUM SQ SCH (19:26)
[2022-05-18] MEDS: DUONEB 0.5-3 MG/3 ml Neb IH SCH ×4 (02:45→20:31)
[2022-05-18] MEDS: PATIENT OWN MEDICATION IH SCH (07:27)
[2022-05-18] MEDS: ROCEPHIN 2 Gm-D5w 50ML BAG** 2 G/50 ML IVPB IV SCH (07:44)
[2022-05-18] MEDS: DELTASONE 20 MG PO SCH (07:44)
[2022-05-18] MEDS: Zocor 10MG PO SCH (07:44)
[2022-05-18] MEDS: Ativan 1 MG PO SCH ×3 (07:45→22:06)
[2022-05-18] MEDS: Risperdal 1 MG PO SCH ×2 (07:45→22:06)
[2022-05-18] MEDS: Protonix 40MG Tablet PO SCH ×2 (07:45→22:06)
[2022-05-18] MEDS: PATIENT OWN MEDICATION PO SCH ×2 (07:46→07:57)
[2022-05-18] MEDS: Zithromax 500 MG/ 250 ML NaCl Premix 500 MG/250 ML IVPB IV SCH (07:58)
[2022-05-18] MEDS: REMDESIVIR 100 MG in Sodium Chloride 100ML MINI-BAG PLUS 100 ML IV SCH (11:02)
--- NOTE | 2022-05-18 18:49 | PCM.NOTE ---
Date and Time: 05/18/221842 Subjective Assessment: Patient is in Covid room,states feeling better ,stronger and less short of breath when up to bedside commode. Remdesivir and Lovenox started yesterday. Appetite is good. Objective Exam General Appearance: no apparent distress Neurologic Exam: alert, oriented x 3, cooperative, normal mood/affect Skin Exam: warm, dry, pale Eye Exam: eyes nml inspection Ears, Nose, Throat Exam: moist mucous membranes Neck Exam: normal inspection Respiratory Exam: diminished breath sounds (but imprved aeration), wheezing (mid bilateral lung pineda) Cardiovascular Exam: regular rate/rhythm Gastrointestinal/Abdomen Exam: soft, No tenderness Extremity Exam: normal inspection OBJECTIVE DATA Vital Signs: Vital Signs - 24 hr Temp Pulse Resp BP Pulse Ox 05/18/22 16:00 97.3 F 112 H 20 154/78 97 05/18/22 11:54 97.3 F 111 H 23 107/61 98 05/18/22 08:01 101 H 20 98 05/18/22 08:00 98.6 F 106 H 20 129/69 98 05/18/22 03:00 98.6 F 114 H 20 135/69 100 05/18/22 02:45 115 H 22 100 05/17/22 23:39 98.0 F 87 19 117/65 100 05/17/22 22:00 20 05/17/22 20:25 89 18 100 05/17/22 20:00 98.2 F 89 18 119/63 99 Pain Assessment - Last Documented Pain Intensity 0 Intake and Output: Intake & Output 05/16/22 05/17/22 05/18/22 05/19/22 11:59 11:59 11:59 11:59 Intake Total 0 1910 1450 480 Balance 21290 1450 480 Weight 53.2 kg 56.8 kg Lab Results: Lab Results-Last 24 Hours 05/17/22 05/18/22 05/18/22 Range/Units 21:47 07:11 11:27 POC Glucometer 167 H 72 L 147 H (74 to 106) mg/dL 05/18/22 Range/Units 16:25 POC Glucometer 130 H (74 to 106) mg/dL Multi-Disciplinary Progress Notes: Multi-Disciplinary Progress Notes 05/18/22 06:38 Respiratory Note by Jeremiah Brooks PT WAS GIVEN TX ON MY SHIFT 2024 ON 05/17 AND 0245 ON 05/18, TIMES WERE OFF ON THE AUG AND I ACCIDENTALLY CHARTED ON THE OPEN 0100 TIME FOR 05/17. Initialized on 05/18/22 06:38 - END OF NOTE Assessment/Plan (1) COVID Current Visit: Yes Status: Acute Assessment & Plan: Remdesivir started yesterday Code(s): U07.1 - COVID-19 (2) Pneumonia Current Visit: Yes Status: Acute Assessment & Plan: clinically improved Code(s): J18.9 - PNEUMONIA, UNSPECIFIED ORGANISM (3) RSV (respiratory syncytial virus infection) Current Visit: Yes Status: Acute Code(s): B33.8 - OTHER SPECIFIED VIRAL DISEASES (4) Anxiety Current Visit: Yes Status: Resolved Code(s): F41.9 - ANXIETY DISORDER, UNSPECIFIED (5) Hyperthyroidism Current Visit: Yes Status: Chronic Assessment & Plan: Methimazole restarted yesterday(Dr Andrea bhat) Code(s): E05.90 - THYROTOXICOSIS, UNSP WITHOUT THYROTOXIC CRISIS OR STORM (6) Elevated d-dimer Current Visit: Yes Status: Acute Assessment & Plan: continue Lovenox Code(s): R79.89 - OTHER SPECIFIED ABNORMAL FINDINGS OF BLOOD CHEMISTRY (7) COPD (chronic obstructive pulmonary disease) Current Visit: Yes Status: Chronic Assessment & Plan: Dr Anuja bhat (8) Chronic respiratory failure with hypoxia Current Visit: Yes Status: Chronic Assessment & Plan: Home O2 continuous
[2022-05-18] MEDS: ENOXAPARIN SODIUM SQ SCH (20:06)
[2022-05-19] MEDS: DUONEB 0.5-3 MG/3 ml Neb IH SCH ×3 (02:20→13:20)
[2022-05-19] MEDS: PATIENT OWN MEDICATION IH SCH (07:47)
[2022-05-19] MEDS: REMDESIVIR 100 MG in Sodium Chloride 100ML MINI-BAG PLUS 100 ML IV SCH (09:08)
[2022-05-19] MEDS: DELTASONE 20 MG PO SCH (09:10)
[2022-05-19] MEDS: Risperdal 1 MG PO SCH (09:11)
[2022-05-19] MEDS: Protonix 40MG Tablet PO SCH (09:11)
[2022-05-19] MEDS: Ativan 1 MG PO SCH ×2 (09:11→16:19)
[2022-05-19] MEDS: Zocor 10MG PO SCH (09:12)
[2022-05-19] MEDS: PATIENT OWN MEDICATION PO SCH ×2 (09:51)
[2022-05-19] MEDS: ROCEPHIN 2 Gm-D5w 50ML BAG** 2 G/50 ML IVPB IV SCH (10:41)
[2022-05-19] MEDS: Zithromax 500 MG/ 250 ML NaCl Premix 500 MG/250 ML IVPB IV SCH (10:42)
--- NOTE | 2022-05-19 14:22 | PCM.DCORD ---
- Discharge Disposition: Home, Self-Care Condition: Stable Prescriptions: No Action Albuterol Sulfate [Albuterol Sulfate Hfa] 2 puff PO Q4HWA Prednisone 10 mg [Deltasone 10 mg] 10 mg PO DAILY Fluticasone/Umeclidin/Vilanter [Trelegy Ellipta 100-62.5-25] 1 puff PO DAILY Dapagliflozin Propanediol [Farxiga] 10 mg PO DAILY PANTOPRAZOLE 40 mg Tablet [Protonix 40MG Tablet] 40 tab PO BID Atorvastatin Calcium 10 mg PO DAILY Methimazole 5 mg PO DAILY Instructions: Acute Respiratory Distress Syndrome, Pneumonia, Adult (DC), COVID-19 (DC) Follow up with: YODIT CASAS [Primary Care Provider] - VIKTOR MAZARIEGOS NP [NON-STAFF PHY W/O PRIVILEGES] - 05/26/22 11:15 am Forms: Discharge Instructions
--- NOTE | 2022-05-19 14:27 | PCM.DCORD ---
- Discharge Disposition: Home, Self-Care Condition: Stable Prescriptions: New Prednisone 20 mg [Deltasone 20 mg] 10 mg PO TID #30 tablet Azithromycin [Zithromax Tri-Wesley] 500 mg PO DAILY #3 tablet Continue Albuterol Sulfate [Albuterol Sulfate Hfa] 2 puff PO Q4HWA Prednisone 10 mg [Deltasone 10 mg] 10 mg PO DAILY Fluticasone/Umeclidin/Vilanter [Trelegy Ellipta 100-62.5-25] 1 puff PO DAILY Dapagliflozin Propanediol [Farxiga] 10 mg PO DAILY PANTOPRAZOLE 40 mg Tablet [Protonix 40MG Tablet] 40 tab PO BID Atorvastatin Calcium 10 mg PO DAILY Methimazole 5 mg PO DAILY Instructions: Acute Respiratory Distress Syndrome, Pneumonia, Adult (DC), COVID-19 (DC) Additional Instructions: Ativan/Lorazepam 0.5 mg #20 ,BID prn anxiety given -sent through [facility] Follow up with: YODIT CASAS [Primary Care Provider] - VIKTOR MAZARIEGOS NP [NON-STAFF PHY W/O PRIVILEGES] - 05/26/22 11:15 am Forms: Discharge Instructions
[2022-05-19 14:42] LABS: Absolute Neutrophil Ct (ANC) 8.73 x10^3/uL (1.4-6.9); Basophil (Absolute #) 0.03 x10^3/uL (0-0.4); Eosinophil (Absolute #) 0 x10^3/uL (0-0.5); Hematocrit 43.3 % (35-47); Hemoglobin 13.6 g/dL (12.0-16.0); Lymphocyte (Absolute #) 0.43 x10^3/uL (1.0-4.6); Lymphocytes % 4.5 % (24.0-44.0); Mean Corpuscular Hemoglobin 31.4 pg (26-32); Mean Corpuscular Hgb Concent. 31.4 g/dL (32-36); Mean Platelet Volume 9.1 fL (7.5-11.0); Monocyte (Absolute #) 0.16 x10^3/uL (0.0-1.3); Monocytes % 1.7 % (0.0-12.0); Neutrophil % 92.2 % (36.0-66.0); Platelet Count 205 x10^3/uL (150-450); Red Blood Count 4.33 x10^6/uL (4.1-5.4); Red Cell Distribution Width 12.7 % (11.5-14.0); White Blood Count 9.5 x10^3/uL (4.0-10.5)
[2022-05-19 15:18] LABS: ALBUMIN 3.8 g/dL (3.5-5.0); ALKALINE PHOSPHATASE 76 U/L (38-126); ANION GAP 6.6 MEQ/L (5-15); BLOOD UREA NITROGEN 14 mg/dL (7-17); CHLORIDE 100 mmol/L (98-107); Calcium 8.5 mg/dL (8.4-10.2); Carbon Dioxide 37 mmol/L (22-30); Creatinine 1 0.57 mg/dL (0.52-1.04); EST GLOMERULAR FILTRATION RATE > 60.0 ML/MIN; Glucose 163 mg/dL (74-106); Potassium 3.7 mmol/L (3.5-5.1); SGOT/AST 23 U/L (14-36); SGPT/ALT 26 U/L (0-35); SODIUM 139 mmol/L (137-145); Total Protein 6.6 g/dL (6.3-8.2)
[2022-05-19] MEDS: ENOXAPARIN SODIUM SQ SCH (15:51)
[2022-05-19 16:20] LABS: Slide Review 1 YES
[2022-05-19 16:26] VITALS: BP 130/73; PULSE 92; O2SAT 100
--- NOTE | 2022-05-29 00:10 | PCM.HP ---
History of Present Illness - Chief Complaint Chief Complaint: Acute on chronic respiratory failure, pneumonia, COVID-19, acute COPD exace Date: 05/16/22 History of Present Illness: is a 56 year old female. Pt. with chronic respiratory failure needing continuous use of 3L nasal cannula oxygen secondary to her COPD, presented to ER with increased sob and cough the previous 2 days. Pt. otherwise was negative on Full review of systems. Work-up found the patient to have a small pleural effusion most likely secondary to pneumonitis. Pt. was requiring more oxygen than she normally requires to maintain a good oxygen saturation, with increased work of breathing and decrease in air exchange noted. - Review of Systems Constitutional: No Fever, No Chills Eyes: No Symptoms Ears, Nose, & Throat: No Symptoms Respiratory: Cough, Short Of Breath, Wheezing Cardiac: No Chest Pain, No Edema, No Syncope Abdominal/Gastrointestinal: No Abdominal Pain, No Nausea, No Vomiting, No Diarrhea Genitourinary Symptoms: No Dysuria Musculoskeletal: No Back Pain, No Neck Pain Skin: No Rash Neurological: No Dizziness, No Focal Weakness, No Sensory Changes Psychological: No Symptoms Endocrine: No Symptoms Hematologic/Lymphatic: No Symptoms Immunological/Allergic: No Symptoms Medications & Allergies Home Medications: Home Medication List Albuterol Sulfate [Albuterol Sulfate Hfa] 2 puff PO Q4HWA 09/26/21 [History Confirmed 05/15/22] Dapagliflozin Propanediol [Farxiga] 10 mg PO DAILY 09/26/21 [History Confirmed 05/15/22] Fluticasone/Umeclidin/Vilanter [Trelegy Ellipta 100-62.5-25] 1 puff PO DAILY 09/26/21 [History Confirmed 05/15/22] PANTOPRAZOLE 40 mg Tablet [Protonix 40MG Tablet] 40 tab PO BID 09/26/21 [History Confirmed 05/15/22] Prednisone 10 mg [Deltasone 10 mg] 10 mg PO DAILY 09/26/21 [History Confirmed 05/15/22] Atorvastatin Calcium 10 mg PO DAILY 05/15/22 [History Confirmed 05/15/22] Methimazole 5 mg PO DAILY 05/17/22 [History Confirmed 05/17/22] Azithromycin [Zithromax Tri-Wesley] 500 mg PO DAILY #3 tablet 05/19/22 [Rx] Prednisone 20 mg [Deltasone 20 mg] 10 mg PO TID #30 tablet 05/19/22 [Rx] Allergies/Adverse Reactions: Allergies Allergy/AdvReac Type Severity Reaction Status Date / Time No Known Drug Allergies Allergy Verified 05/15/22 05:13 - Past Medical History Past Medical History: Yes Neurological History: No Pertinent History ENT History: No Pertinent History Cardiac History: High Cholesterol Respiratory History: COPD, Emphysema Endocrine Medical History: Diabetes Type II Musculoskelatal History: Rheumatoid Arthritis, Other GI Medical History: Diverticulitis History: No Pertinent History Pyscho-Social History: Anxiety Reproductive Disorders: No Pertinent History Comment: is time. - Female History Are you now?: No - Past Surgical History Past Surgical History: Yes Neuro Surgical History: No Pertinent History Cardiac History: No Pertinent History Respiratory Surgery: No Pertinent History GI Surgical History: No Pertinent History Genitourinary Surgical Hx: No Pertinent History Musculskeletal Surgical Hx: No Pertinent History Female Surgical History: No Pertinent History Other Surgical History: Surgical history obtained from medical history from previous hospital visit at this time due to inability to obtain this information from the patient at this time. - Social History Smoking Status: Current every day smoker How long have you smoked: years Exposure to second hand smoke: Yes Alcohol: None, Occasionally Drug Use: none - Physical Exam General Appearance: no apparent distress, alert Neurologic Exam: alert, oriented x 3, cooperative, normal mood/affect, nml cerebellar function, nml station & gait, sensation nml, No motor deficits Eye Exam: PERRL/EOMI, eyes nml inspection Ears, Nose, Throat Exam: normal ENT inspection, pharynx normal, moist mucous membranes Neck Exam: normal inspection, non-tender, supple, full range of motion Respiratory Exam: diminished breath sounds, prolonged expirations, rhonchi, wheezing, No respiratory distress Cardiovascular Exam: regular rate/rhythm, normal heart sounds, normal peripheral pulses Gastrointestinal/Abdomen Exam: soft, normal bowel sounds, No tenderness, No mass Back Exam: normal inspection, normal range of motion, No CVA tenderness, No vertebral tenderness Extremity Exam: normal inspection, normal range of motion, pelvis stable Skin Exam: normal color, warm, dry, No rash Lymphatic Exam: No adenopathy Results - Labs Lab/Micro Results: Microbiology 05/15/22 06:10 Blood Culture Gram Stain - Final Blood Not Reportable Blood Culture - Final NO GROWTH 05/15/22 06:05 Blood Culture Gram Stain - Final Blood Not Reportable Blood Culture - Final NO GROWTH Assessment/Plan (1) Acute exacerbation of COPD with asthma Status: Acute Assessment & Plan: frequent nebulizer treatments with iv antibiotics and iv steroids Code(s): J44.1 - CHRONIC OBSTRUCTIVE PULMONARY DISEASE W (ACUTE) EXACERBATION; J45.901 - UNSPECIFIED ASTHMA WITH (ACUTE) EXACERBATION (2) Acute and chronic respiratory failure Status: Acute Assessment & Plan: continue nasal cannula oxygen at a level to maintain oxygen 92-94% Code(s): J96.20 - ACUTE AND CHR RESP FAILURE, UNSP W HYPOXIA OR HYPERCAPNIA (3) Pneumonia Status: Acute Assessment & Plan: iv antibiotics Code(s): J18.9 - PNEUMONIA, UNSPECIFIED ORGANISM (4) COPD (chronic obstructive pulmonary disease) Status: Chronic Assessment & Plan: continue baseline treatment plan (5) Chronic respiratory failure with hypoxia Status: Chronic
== END 2022-05-19 16:13 | disposition home health service (06) ==
LOC: ED 05:10 → MED SURG 12:09
PROVIDERS: ADMIT Family Medicine; ATTEND Family Medicine
DX: J44.1 Chronic obstructive pulmonary disease with (acute) exacerbation (principal); J18.9 Pneumonia, unspecified organism; U07.1 COVID-19; J96.20 Acute and chronic respiratory failure, unspecified whether with hypoxia or hypercapnia; B33.8 Other specified viral diseases; J45.901 Unspecified asthma with (acute) exacerbation; F41.9 Anxiety disorder, unspecified; E05.90 Thyrotoxicosis, unspecified without thyrotoxic crisis or storm; R79.89 Other specified abnormal findings of blood chemistry; E11.9 Type 2 diabetes mellitus without complications; Z79.899 Other long term (current) drug therapy; Z20.828 Contact with and (suspected) exposure to other viral communicable diseases; Z72.0 Tobacco use; Z99.81 Dependence on supplemental oxygen
CPT/HCPCS: 0241U; 36000; 36415; 71045; 71260; 80053; 82947; 83036; 83605; 83880; 84436; 84484; 85025; 85379; 87040; 93005; 93041; 93268; 94640; 94760; 94762; 96365; 96367; 96374; 96375; 99285; G0378; J0248; J0456; J0696; J1650; J2060; J2930; A9270-GY